=== PATIENT | female | born 1980 | race Native Hawaiian/Other Pacific Islander ===

== ENCOUNTER 2022-06-06 10:41 | Outpatient (REF) | payer MEDICAID, SELFPAY ==
[2022-06-06 12:05] LABS: Hematocrit 41.1 % (37.0-47.0); Hemoglobin 13.6 g/dl (12.0-16.0); Mean Corpuscular HGB Conc 33.1 g/dl (31.0-35.0); Mean Corpuscular Hemoglobin 29.9 pg (27.0-33.0); Mean Corpuscular Volume 90.3 fL (80.0-98.0); Mean Platelet Volume 10.8 fL (9.4-12.3); Platelet Count 365 X10*3/uL (160-400); Red Blood Count 4.55 X10*6/uL (4.20-5.50); Red Cell Distribution Width 12.5 % (11.0-16.0); White Blood Count 6.6 X10*3/uL (4.8-10.8)
[2022-06-06 12:35] LABS: HCG Quantitative < 2 mIU/mL; TSH reflex Free T4 1.03 uIU/mL (0.32-4.0)
[2022-06-06 16:49] LABS: CT PCR NOT DETECTED (Not Detect.); NG PCR NOT DETECTED (Not Detect.)
[2022-06-09 18:06] LABS: HPV mRNA E6/E7 rflx Not Detected (Not Detected)
== END 2022-06-06 10:42 | disposition home or self-care (01) ==
LOC: HO.LAB 10:41
PROVIDERS: Visit Provider Obstetrics & Gynecology
DX: Z01.419 Encounter for gynecological examination (general) (routine) without abnormal findings (principal); R10.2 Pelvic and perineal pain; N93.9 Abnormal uterine and vaginal bleeding, unspecified; Z11.51 Encounter for screening for human papillomavirus (HPV); Z90.79 Acquired absence of other genital organ(s)
CPT/HCPCS: 36415; 84443; 84702; 85027; 87491; 87591; 87624; 88142; 99202

== ENCOUNTER 2022-06-09 14:59 | Outpatient (REF) | payer MEDICAID, SELFPAY ==
--- NOTE | ~2022-06-09 | MM_ITS ---
EXAMINATION: MM SCREENING DIGITAL BREAST TOMOSYNTHESIS, BILATERAL CLINICAL INFORMATION: Screening. Asymptomatic. The lifetime risk of breast cancer based on the Tyrer-Cuzick Model is 8.6%. COMPARISON: Mammography: None. TECHNIQUE: Digital breast tomosynthesis is performed in both the craniocaudal and mediolateral oblique views along with computer-aided detection (CAD). Synthesized 2D images are generated from the tomosynthesis. FINDINGS: There are scattered areas of fibroglandular density (ACR BI-RADS breast composition Category b). No abnormal suspicious mass or grouping of microcalcifications is seen within the left breast. On craniocaudal view central aspect approximately 5.5 cm from nipple there is an irregularly marginated density measuring approximately 1 cm in diameter for which spot compression view is recommended. I do not see a definite correlate on mediolateral oblique projection, however there is a large amount of dense breast parenchyma superiorly in the expected location of the density by tomosynthesis. MM/MM tomosynthesis screening BI IMPRESSION: Right breast density for further evaluation with spot compression view and craniocaudal projection. ASSESSMENT: BI-RADS 0: Incomplete - Need Additional Imaging Evaluation. RECOMMENDATION: 1. Additional views of the right breast. 2. Targeted ultrasound if warranted after review of the additional views. 3. Radiology department staff will contact the patient for additional imaging. This patient's information was entered into a reminder system with a target due date for their next mammogram.
== END 2022-06-09 15:00 | disposition home or self-care (01) ==
LOC: HO.MAMMO 14:59
PROVIDERS: PCP Internal Medicine; Visit Provider Internal Medicine
DX: Z12.31 Encounter for screening mammogram for malignant neoplasm of breast (principal)
CPT/HCPCS: 77063; 77067

== ENCOUNTER 2022-06-20 13:18 | Outpatient (REF) | payer MEDICAID, SELFPAY ==
--- NOTE | ~2022-06-20 | MM_ITS ---
EXAMINATION: MM DIAGNOSTIC DIGITAL BREAST TOMOSYNTHESIS, RIGHT CLINICAL INFORMATION: Recall from baseline mammography for question of irregular asymmetric density limited to CC view central right breast. COMPARISON: Mammography: 06/09/2022, baseline. TECHNIQUE: Digital breast tomosynthesis is performed. 2D images are generated from the tomosynthesis. The following views are obtained: Rolled CC x2, spot CC. FINDINGS: There are scattered areas of fibroglandular density (ACR BI-RADS breast composition Category b). Breast tissue composition borders on predominantly fatty. The additional views show no mass or architectural abnormality or asymmetric density. Results are discussed with the patient at time of visit. MM/MM tomosynthesis added views R IMPRESSION: Additional views show no asymmetric density, architectural abnormality, or mass. ASSESSMENT: BI-RADS 1: Negative RECOMMENDATION: Routine annual mammography screening. This patient's information was entered into a reminder system with a target due date for their next mammogram.
== END 2022-06-20 13:19 | disposition home or self-care (01) ==
LOC: HO.MAMMO 13:18
PROVIDERS: Visit Provider Obstetrics & Gynecology
DX: R92.2 Inconclusive mammogram (principal)
CPT/HCPCS: 77061; 77065

== ENCOUNTER 2022-07-04 14:54 | Outpatient (REF) | payer MEDICAID, SELFPAY ==
[2022-07-04 15:32] LABS: COVID-19 Test Negative (Negative); IDNOW Serial# 16C4AD1C
== END 2022-07-04 14:55 | disposition home or self-care (01) ==
LOC: HO.LAB 14:54
PROVIDERS: Visit Provider Internal Medicine
DX: Z20.822 Contact with and (suspected) exposure to COVID-19 (principal)
CPT/HCPCS: 87635; C9803

== ENCOUNTER 2022-09-02 16:12 | Outpatient (REF) | payer MEDICAID, SELFPAY ==
--- NOTE | ~2022-09-02 | US_ITS ---
EXAMINATION:US pelvic and transvaginal CLINICAL INFORMATION: Reason for Exam N93.9 - Abnormal uterine and vaginal bleeding, unspecified COMPARISON: No priors available. LMP: 06/06/2019 FINDINGS: UTERUS: Uterus is retroverted. Size: 11.3 x 4 x 5.9 cm. Uterine mass: There is no uterine mass. Cervix: There are nabothian cysts. Endometrium: No ultrasound evidence of endometrial lesion. endometrial thickness measures 1.2 cm there is fluid within the endometrial canal , given patient's age, could be be physiologic. ADNEXA: Normal Right ovary: Normal in size. Left ovary: Normal in size. Doppler exam: Normal Doppler flow identified in both ovaries. FREE FLUID: Trace amount of free fluid. OTHER FINDINGS: None US/US pelvic and transvaginal IMPRESSION: 1. There is fluid within the endometrial canal, given patient's age this could be physiologic, consider correlation with follow-up ultrasound in 6 weeks. 2. There are nabothian cysts, Exam otherwise normal.
== END 2022-09-02 16:13 | disposition home or self-care (01) ==
LOC: HO.US 16:12
PROVIDERS: Visit Provider Obstetrics & Gynecology
DX: N93.9 Abnormal uterine and vaginal bleeding, unspecified (principal)
CPT/HCPCS: 76830; 76856

== ENCOUNTER 2022-09-14 14:48 | Outpatient (REF) | payer MEDICAID, SELFPAY | END 2022-09-14 14:49 | disposition home or self-care (01) | LOC: HO.LNP 14:48 | PROVIDERS: PCP Internal Medicine; Visit Provider Obstetrics & Gynecology | DX: N93.9 Abnormal uterine and vaginal bleeding, unspecified (principal); R10.2 Pelvic and perineal pain | CPT/HCPCS: 58100; 88305 ==

== ENCOUNTER → 2022-10-04 14:56 | Outpatient (BNVA) | payer MEDICAID, SELFPAY | PROVIDERS: PCP Internal Medicine; Visit Provider Obstetrics & Gynecology | DX: N93.9 Abnormal uterine and vaginal bleeding, unspecified (principal) | CPT/HCPCS: 99212 ==

== ENCOUNTER 2022-10-26 11:29 | Outpatient (REF) | payer MEDICAID, SELFPAY ==
[2022-10-26 11:50] LABS: MANUAL DIFF FLAG NO
[2022-10-26 13:28] LABS: Basophils Percent Auto 0.4 % (0-2); Eosinophils Absolute Auto 0.1 X10*3/uL (0.0-0.4); Eosinophils Percent Auto 2.5 % (0-4); Hematocrit 40.1 % (37.0-47.0); Hemoglobin 13.2 g/dl (12.0-16.0); Imm Gran Abs Auto 0.02 X10*3/uL (0.00-0.03); Imm Gran Pct Auto 0.4 % (0.0-0.4); Lymphocytes Absolute Auto 2.5 X10*3/uL (1.2-4.9); Lymphocytes Percent Auto 44.6 % (20-40); Mean Corpuscular HGB Conc 32.9 g/dl (31.0-35.0); Mean Corpuscular Hemoglobin 30.3 pg (27.0-33.0); Mean Platelet Volume 11.8 fL (9.4-12.3); Monocytes Absolute Auto 0.4 X10*3/uL (0.1-1.2); Monocytes Percent Auto 6.5 % (2-11); Neutrophils Absolute Auto 2.5 x10*3/uL (2.0-8.3); Neutrophils Percent Auto 45.6 % (45-73); Platelet Count 268 X10*3/uL (160-400); Red Blood Count 4.36 X10*6/uL (4.20-5.50); Red Cell Distribution Width 12.7 % (11.0-16.0); White Blood Count 5.6 X10*3/uL (4.8-10.8)
[2022-10-26 13:58] LABS: Anion Gap 13 (12-20); Blood Urea Nitrogen 11 mg/dL (9-16); Calcium 8.8 mg/dL (8.4-10.2); Carbon Dioxide 22 mmol/L (22-29); Chloride 108 mmol/L (96-108); Estimated Glomerular Filt Rate > 60; Glucose Random 79 mg/dL (60-115); Potassium 4.8 mmol/L (3.3-5.1); Sodium 138 mmol/L (135-145)
[2022-10-26 14:22] LABS: Erythrocyte Sedimentation Rate 12 MM/HR (0-20)
== END 2022-10-26 11:30 | disposition home or self-care (01) ==
LOC: HO.LAB 11:29
PROVIDERS: PCP Internal Medicine; Visit Provider Psychiatry & Neurology Neurology
DX: G43.909 Migraine, unspecified, not intractable, without status migrainosus (principal)
CPT/HCPCS: 36415; 80048; 85025; 85652

== ENCOUNTER 2022-11-29 09:42 | Day surgery (SDC) | payer MEDICAID, SELFPAY ==
--- NOTE | 2022-11-28 12:50 | HO.ANESPROP2 ---
Documented by User: Valerie Wang NP 11/28/22 12:53 HPI - Anesthesia Eval Consult details Narrative: 42yo F for Upper Endoscopy PMFSH Active Problems Active Problems: All Active Problems (Updated 11/28/22 @ 12:21 by Starr Lutz RN) Abnormal uterine bleeding (AUB) (Acute) Pelvic pain (Acute) Past Medical History Medical History (Updated 11/29/22 @ 10:04 by Alanna Martinez) Carpal tunnel syndrome Hx of ectopic Hypertension Migraine headache Pelvic adhesions Surgical History Surgical History (Updated 11/29/22 @ 09:59 by Alanna Martinez) Hx of bilateral salpingectomy Hx of section Hx of cholecystectomy Social History Social History Patient Tobacco Use Status: Never used Tobacco Use of substances other than those prescribed or required for medical reasons: No Are you DNR?: No Advance Directives: No Advance Directives Information Provided: Yes Meds Allergies Allergy/AdvReac Type Severity Reaction Status Date / Time No Known Allergies Allergy Verified 11/29/22 10:03 Home Medications Medication Instructions Recorded Confirmed Last Taken Type fpdlvmcmgn-ybjgebohttouj-vekashgp 1 - 2 cap PO Q4H PRN Migraine 06/06/22 11/29/22 Unknown History 50 mg-325 mg-40 mg capsule Headache famotidine 20 mg tablet 20 mg PO BID 06/06/22 11/29/22 Unknown History hydrocodone 5 mg-acetaminophen 325 1 - 2 tab PO Q6H PRN pain 06/06/22 11/29/22 Unknown History mg tablet ibuprofen 600 mg tablet 600 mg PO Q8H PRN Pain 06/06/22 11/29/22 11/25/22 History loperamide 2 mg capsule 4 mg PO DAILY 06/06/22 11/29/22 Unknown History omeprazole 40 mg capsule,delayed 40 mg PO DAILY 06/06/22 11/29/22 Unknown History release ondansetron HCl 4 mg tablet 4 mg PO Q8H PRN nausea/vomiting 06/06/22 11/29/22 Unknown History amitriptyline 25 mg tablet 1 tab PO BEDTIME 11/28/22 11/29/22 Unknown History cholecalciferol (vitamin D3) 25 1 cap PO DAILY 11/28/22 11/29/22 Unknown History mcg (1,000 unit) capsule (Vitamin D3) meclizine 25 mg tablet 1 tab PO Q8H PRN Migraine Headache 11/28/22 11/29/22 Unknown History topiramate 50 mg tablet 1 tab PO BEDTIME 11/28/22 11/29/22 Unknown History amlodipine 2.5 mg tablet 1 tab PO DAILY 11/29/22 11/29/22 11/27/22 History Exam Exam Date and Time: November 28, 2022 1250 Pertinent Lab Results Pertinent Lab Results: Laboratory Tests 10/26/22 10/26/22 11:48 11:48 WBC 5.6 Hgb 13.2 Hct 40.1 Plt Count 268 D Sodium 138 Potassium 4.8 Chloride 108 Carbon Dioxide 22 BUN 11 Creatinine 0.69 Assessment and Plan Assessment Anesthesia Assessment: Chart Reviewed Documented by User: Daquan Roldan MD 11/29/22 12:31 PMFSH Past Medical History Medical History (Updated 11/29/22 @ 10:04 by Alanna Martinez) Carpal tunnel syndrome Hx of ectopic Hypertension Migraine headache Pelvic adhesions Family History Family history of problems with anesthesia: No Surgical History Surgical History (Updated 11/29/22 @ 09:59 by Alanna Martinez) Hx of bilateral salpingectomy Hx of section Hx of cholecystectomy History of Problems with Anesthesia: No Social History Social History Patient Tobacco Use Status: Never used Tobacco Use of substances other than those prescribed or required for medical reasons: No Are you DNR?: No Advance Directives: No Advance Directives Information Provided: Yes Meds Allergies Allergy/AdvReac Type Severity Reaction Status Date / Time No Known Allergies Allergy Verified 11/29/22 10:03 Home Medications Medication Instructions Recorded Confirmed Last Taken Type kqkjglkodf-yhzlaurgujgyd-iulsdlzf 1 - 2 cap PO Q4H PRN Migraine 06/06/22 11/29/22 Unknown History 50 mg-325 mg-40 mg capsule Headache famotidine 20 mg tablet 20 mg PO BID 06/06/22 11/29/22 Unknown History hydrocodone 5 mg-acetaminophen 325 1 - 2 tab PO Q6H PRN pain 06/06/22 11/29/22 Unknown History mg tablet ibuprofen 600 mg tablet 600 mg PO Q8H PRN Pain 06/06/22 11/29/22 11/25/22 History loperamide 2 mg capsule 4 mg PO DAILY 06/06/22 11/29/22 Unknown History omeprazole 40 mg capsule,delayed 40 mg PO DAILY 06/06/22 11/29/22 Unknown History release ondansetron HCl 4 mg tablet 4 mg PO Q8H PRN nausea/vomiting 06/06/22 11/29/22 Unknown History amitriptyline 25 mg tablet 1 tab PO BEDTIME 11/28/22 11/29/22 Unknown History cholecalciferol (vitamin D3) 25 1 cap PO DAILY 11/28/22 11/29/22 Unknown History mcg (1,000 unit) capsule (Vitamin D3) meclizine 25 mg tablet 1 tab PO Q8H PRN Migraine Headache 11/28/22 11/29/22 Unknown History topiramate 50 mg tablet 1 tab PO BEDTIME 11/28/22 11/29/22 Unknown History amlodipine 2.5 mg tablet 1 tab PO DAILY 11/29/22 11/29/22 11/27/22 History Exam Airway Mallampati Class: II TM Dist: >3cm Neck ROM: Full Loose/Missing/Broken Teeth: No Assessment and Plan Assessment Anesthesia Assessment: Anesthesia Plan Discussed Final Anesthetic Review Family History of Problems with Anesthesia: No History of Problems with Anesthesia: No NPO: Yes ASA Class: II Final Preanesthetic Review: No Changes in Pt Med Stat, Meds/Allgs Chart Reviewed, Consent Obtained/Reviewed and Anes Risks/Benef Reviewed Patient Risk: Low Procedure Risk: Low Anesthetic Plan Anesthetic Plan: MAC: Disposition: Standard PACU
[2022-11-29 10:04] VITALS: BMI 32.8
[2022-11-29 10:11] VITALS: BP 149/99; PULSE 71; RESP 16; TEMP 36.8; O2SAT 98
[2022-11-29] MEDS: Lactated Ringers 1,000 ML 100 ML IVCONT (10:26)
--- NOTE | 2022-11-29 11:38 | MHC.SHP ---
Pre-Procedural Eval Section A Date of Service: 11/29/22 Section B Chief Complaint: reflux disease Details of Present Illness: see H*P no changes Relevant Family History (Specify if Yes): No Relevant Social History: None Present Medications: see Short Stay Collaborative assessment Medical History: No relevant PMH History of Previous Operations: No relevant previous surgery Allergies: Allergies Allergy/AdvReac Type Severity Reaction Status Date / Time No Known Allergies Allergy Verified 11/29/22 10:03 Review of Systems Sugical H&P ROS: Negative: Constitution, Cardiovascular, Respiratory, Neurological, Psychiatric, Hem-Onc, Allergic/Immunologic, Gastrointestinal, Genitourinary, Musculoskeletal, Integumentary, Endocrine and Eyes/Ears/Nose/Throat Exam Surgical H&P Exam: Normal: HEENT, Normal: Heart, Normal: Lungs, Normal: Extremities, Normal: Abdomen, Normal: Skin and Normal: Neurological Plan Diagnosis/Plan: Unchanged I have reviewed the history and physical and performed a pertinent physical examination on my patient. No changes have occurred unless specified. Time Spent With Patient Time: Total time managing care of this patient today ____ minutes.
--- NOTE | 2022-11-29 11:53 | P.BOP_ITS ---
Brief Operative Note Date of Service: 11/29/22 Pre-op diagnosis: gerd Post-op diagnosis: same Surgeon: Jayy lFetcher Anesthesia: MAC Was an Openstack Developer used for this Procedure?: No Estimated blood loss (mL): 2 Pathology: other Condition: stable Disposition: PACU
--- NOTE | 2022-11-29 11:53 | PM.OP ---
Brief Operative Note Date of Service: 11/29/22 Pre-op diagnosis: gerd Post-op diagnosis: same Surgeon: Jayy Fletcher Anesthesia: MAC Was an Registered Nurse Hh Case Manager used for this Procedure?: No Estimated blood loss (mL): 2 Pathology: other Condition: stable Disposition: PACU
[2022-11-29 12:00] VITALS: BP 135/82; PULSE 69; RESP 16; TEMP 36.6; O2SAT 98
[2022-11-29 12:15] VITALS: BP 139/83; PULSE 67; RESP 16; TEMP 36.6; O2SAT 98
--- NOTE | 2022-11-29 23:05 | OP_ITS ---
SURGEON: Jayy Fletcher MD INDICATIONS: Gastroesophageal reflux disease. PREOPERATIVE DIAGNOSIS: POSTOPERATIVE DIAGNOSIS: PROCEDURE PERFORMED: Upper endoscopy with biopsy. ESTIMATED BLOOD LOSS: COMPLICATIONS: ANESTHESIA: Monitored anesthesia care. ASSISTANTS: SPECIMENS: DESCRIPTION OF PROCEDURE: Date: 11/29/22. A History and Physical was performed. The risks and benefits of the procedure were explained to the patient. Informed consent was obtained. The patient was placed in the left lateral decubitus position. The Olympus video gastroscope was introduced into the esophagus, stomach and duodenum. Examination was performed and the scope was removed. She tolerated the procedure well and was transferred to recovery area in stable condition. FINDINGS: Esophagus: The esophagus was normal. There was no esophagitis. There was an irregular EG junction. This was biopsied. Stomach: The stomach showed no evidence of masses, ulcers or polyps. Antral biopsies were obtained to evaluate for H. pylori. Duodenum: The bulb and second portion were normal. Second portion biopsies were obtained to evaluate for any evidence of malabsorption. IMPRESSION: Gastroesophageal reflux disease. RECOMMENDATION: Followup the biopsy results. MD CORI Wilks/JALEN / [id number] MTDD
== END 2022-11-29 14:01 | disposition home or self-care (01) ==
PROVIDERS: PCP Internal Medicine; Visit Provider Internal Medicine Gastroenterology
PROC: 0DJ08ZZ Inspection of Upper Intestinal Tract, Via Natural or Artificial Opening Endoscopic (ICD-10-PCS; CPT 43235; principal; 2022-11-29 11:10)
DX: K21.9 Gastro-esophageal reflux disease without esophagitis (principal); K29.50 Unspecified chronic gastritis without bleeding; G43.909 Migraine, unspecified, not intractable, without status migrainosus; Z79.1 Long term (current) use of non-steroidal anti-inflammatories (NSAID); Z79.899 Other long term (current) drug therapy; Z90.49 Acquired absence of other specified parts of digestive tract
CPT/HCPCS: 43239; 88305; 88342

== ENCOUNTER 2023-02-15 16:20 | Outpatient (REF) | payer MEDICAID, SELFPAY ==
--- NOTE | ~2023-02-15 | CT_ITS ---
EXAMINATION: CT HEAD WITHOUT CONTRAST CLINICAL INFORMATION: Vertigo, dizziness. COMPARISON: CT brain 01/11/2017. TECHNIQUE: Contiguous axial imaging was performed from the skull base to vertex without intravenous administration of contrast. This CT examination was performed using dose optimization techniques as appropriate, variously including the following: *Automated exposure control *Adjustment of mA and/or kV according to patient size (this includes techniques or standardized protocols for targeted exams where dose is matched to indication/reason for exam; i.e. extremities or head) *Use of iterative reconstruction technique DLP: 724 mGy-cm FINDINGS: There is no acute intra-axial, extra-axial bleed, masses or midline shift. There is no acute infarction evolution. There is no edema. The carrington to white matter differentiation is maintained normal. The lateral ventricles are symmetrical in size and configuration. Bilateral paranasal sinuses are well-aerated. The mastoid sinuses are aerated. There is no scalp soft tissue abnormality. No calvarial abnormality seen. CT/CT head/brain wo IV con IMPRESSION: No acute intracranial process seen. No major change compared to previous exam 01/11/2017.
== END 2023-02-15 16:21 | disposition home or self-care (01) ==
LOC: HO.CT 16:20
PROVIDERS: PCP Internal Medicine; Visit Provider Psychiatry & Neurology Neurology
DX: R42 Dizziness and giddiness (principal)
CPT/HCPCS: 70450

== ENCOUNTER → 2023-07-31 16:00 | Outpatient (BNV) | payer MEDICAID, SELFPAY | PROVIDERS: PCP Internal Medicine; Visit Provider Radiology Diagnostic Radiology | DX: Z12.31 Encounter for screening mammogram for malignant neoplasm of breast (principal) | CPT/HCPCS: 77063; 77067 ==

== ENCOUNTER 2023-07-31 16:15 | Outpatient (REF) | payer MEDICAID, SELFPAY | END 2023-07-31 16:16 | disposition home or self-care (01) | LOC: HO.MAMMO 16:15 | PROVIDERS: PCP Internal Medicine; Visit Provider Internal Medicine | DX: Z12.31 Encounter for screening mammogram for malignant neoplasm of breast (principal) | CPT/HCPCS: 77063; 77067 ==

== ENCOUNTER 2023-08-31 11:53 | Outpatient (REF) | payer MEDICAID, SELFPAY ==
--- NOTE | ~2023-08-31 | XR_ITS ---
EXAMINATION: XR SHOULDER, LEFT CLINICAL INFORMATION: Acute left shoulder pain COMPARISON: None available. TECHNIQUE: 5 views of the left shoulder. FINDINGS: Acromioclavicular and glenohumeral joints preserved. No abnormal soft tissue calcifications identified adjacent to the humeral head. Mild hypertrophic change along the inferior aspect of the glenoid. XR/XR shoulder LT min 2V IMPRESSION: Mild hypertrophic change along the inferior aspect of the glenoid.
== END 2023-08-31 11:54 | disposition home or self-care (01) ==
LOC: HO.HHCX 11:53
PROVIDERS: Visit Provider Internal Medicine
DX: M25.512 Pain in left shoulder (principal)
CPT/HCPCS: 73030

== ENCOUNTER 2023-11-24 09:30 | Outpatient (REF) | payer MEDICAID, SELFPAY ==
[2023-11-24 11:24] LABS: MANUAL DIFF FLAG NO
[2023-11-24 12:01] LABS: Basophils Percent Auto 0.5 % (0-2); Eosinophils Absolute Auto 0.1 X10*3/uL (0.0-0.4); Hematocrit 40.3 % (37.0-47.0); Hemoglobin 13.4 g/dl (12.0-16.0); Imm Gran Abs Auto 0.01 X10*3/uL (0.00-0.03); Imm Gran Pct Auto 0.2 % (0.0-0.4); Lymphocytes Absolute Auto 2.3 X10*3/uL (1.2-4.9); Lymphocytes Percent Auto 37.7 % (20-40); Mean Corpuscular HGB Conc 33.3 g/dl (31.0-35.0); Mean Corpuscular Hemoglobin 30.9 pg (27.0-33.0); Mean Corpuscular Volume 92.9 fL (80.0-98.0); Mean Platelet Volume 10.8 fL (9.4-12.3); Monocytes Absolute Auto 0.3 X10*3/uL (0.1-1.2); Monocytes Percent Auto 5.6 % (2-11); Neutrophils Absolute Auto 3.4 x10*3/uL (2.0-8.3); Platelet Count 388 X10*3/uL (160-400); Red Blood Count 4.34 X10*6/uL (4.20-5.50); Red Cell Distribution Width 12.2 % (11.0-16.0); White Blood Count 6.1 X10*3/uL (4.8-10.8)
[2023-11-24 12:58] LABS: Alanine Aminotransferase 24 U/L (0-31); Albumin Level 4.2 g/dL (3.5-5.0); Alkaline Phosphatase 73 U/L (39-117); Anion Gap 12 (12-20); Aspartate Amino Transferase 18 U/L (5-31); Bilirubin Direct 0.2 mg/dL (0.0-0.5); Bilirubin Total 0.5 mg/dL (0.0-1.0); Blood Urea Nitrogen 12 mg/dL (9-16); Calcium 9.2 mg/dL (8.4-10.2); Carbon Dioxide 27 mmol/L (22-29); Chloride 105 mmol/L (96-108); Cholesterol 172 mg/dL (<200); Estimated Glomerular Filt Rate > 60; Glucose Random 93 mg/dL (60-115); HDL Cholesterol 48 mg/dL (>40); LDL Cholesterol Calculated 108 mg/dL (<100); Magnesium 2.2 mg/dL (1.6-2.6); Potassium 4.2 mmol/L (3.3-5.1); Sodium 140 mmol/L (135-145); Total Protein 8.3 g/dL (6.5-8.0); Triglycerides 81 mg/dL (<150)
[2023-11-24 13:22] LABS: TSH reflex Free T4 0.82 uIU/mL (0.32-4.0); Vitamin D 25-OH Total 29.9 ng/mL (>30)
== END 2023-11-24 09:31 | disposition home or self-care (01) ==
LOC: HO.HHCL 09:30
PROVIDERS: Visit Provider Internal Medicine
DX: I10 Essential (primary) hypertension (principal); R00.2 Palpitations; E55.9 Vitamin D deficiency, unspecified
CPT/HCPCS: 36415; 80048; 80061; 80076; 82306; 83735; 84443; 85025

== ENCOUNTER 2023-12-07 09:02 | Outpatient (REF) | payer MEDICAID, SELFPAY | END 2023-12-07 09:03 | disposition home or self-care (01) | LOC: HO.NEURO 09:02 | PROVIDERS: PCP Internal Medicine; Visit Provider Internal Medicine | DX: Z13.89 Encounter for screening for other disorder (principal) ==

== ENCOUNTER 2023-12-21 09:36 | Outpatient (REF) | payer MEDICAID, SELFPAY ==
--- NOTE | 2023-12-21 09:39 | EMG_ITS ---
Left median and ulnar motor and sensory studies were performed. Left radial sensory and median and lateral antecubital brachial sensory studies were performed, and needle examination was performed. IMPRESSION: Mild left median neuropathy across carpal tunnel. Otherwise, no significant abnormality was noted. MD ANURAG Augustine/JALEN / [id number]
== END 2023-12-21 09:37 | disposition home or self-care (01) ==
LOC: HO.NEURO 09:36
PROVIDERS: PCP Internal Medicine; Visit Provider Internal Medicine
DX: M25.512 Pain in left shoulder (principal)
CPT/HCPCS: 95886; 95910

== ENCOUNTER 2024-01-25 12:37 | Outpatient (AMB) | payer MEDICAID, SELFPAY ==
[2024-01-25 12:51] VITALS: BP 132/68; PULSE 60; BMI 34.6
--- NOTE | 2024-01-25 12:51 | A.OFFVIS_ITS ---
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 PT still feels paplutations sometimes with SOB Allergies No Known Allergies Allergy (Verified 01/25/24 13:15) Medication List - Last Reconciled 01/25/24 by Aundrea Gibbs NP amitriptyline 1 tab PO BEDTIME amlodipine 5 mg PO DAILY ztbmhqfiqz-emmiddkycsxck-yqrb 50-325-40 mg 1 - 2 caps PO Q4H PRN carvedilol 6.25 mg PO cholecalciferol (vitamin D3) (Vitamin D3) 1 cap PO DAILY famotidine 20 mg PO BID hydrocodone-acetaminophen 5-325 mg 1 - 2 tabs PO Q6H PRN ibuprofen 600 mg PO Q8H PRN loperamide 4 mg PO DAILY meclizine 1 tab PO Q8H PRN medroxyprogesterone (Provera) 10 mg PO DAILY 10 days omeprazole 40 mg PO DAILY ondansetron HCl 4 mg PO Q8H PRN sertraline 25 mg PO DAILY topiramate 1 tab PO BEDTIME HPI HPI Comments History of Present Illness Details 43-year-old female presents today for a new patient visit. She is here today to discuss her hypertension, palpitations, and shortness of breath. She reports recently her blood pressures have improved since being on Coreg and been 120s/80s. She states almost every night she has been getting a racing heart rate that wakes her up. She states these feel like a double beat. She does get dizzy during these episodes and they last about one hour. She denies chest pains. She has a family history stroke and high blood pressure. She does not know the cause of the strokes in her family members. She drinks tea rarely, never coffee. Never smoked, used illicit drugs, or drinks alcohol. She exercises on her bike without difficulties. She is a mother to two younger children. [facility] Medical History Palpitation Hypertension Carpal tunnel syndrome Pelvic adhesions Hx of ectopic Migraine headache Surgical History Hx of cholecystectomy Hx of bilateral salpingectomy Hx of section Family History Mother High blood pressure Stroke Brother High blood pressure Maternal Grandfather Stroke Social History Alcohol intake: never Patient Tobacco Use Status: Never used Tobacco Female Reproductive History Menstrual Age of Menarche: 13 Review of Systems Const Denies weakness ENT Denies dizziness Card Denies chest pain, Denies chest pain with activity, Denies syncope, Denies rapid heart rate, Denies pedal edema, Denies edema, Denies leg edema, Denies lightheadedness, Denies palpitations, Denies dyspnea, Denies dyspnea on exertion and Denies orthopnea Resp Denies cough, Denies dyspnea and Denies dyspnea on exertion GI Denies hematochezia and Denies change in stool character Musc Denies abnormal gait, Denies muscle cramps, Denies muscle weakness, Denies numbness, Denies radiating pain into limb and Denies tingling Neuro Denies abnormal gait, Denies dizziness, Denies syncope, Denies numbness, Denies tingling and Denies weakness Endo Denies palpitations Physical Exam Vital Signs: BMI result Body Mass Index 34.6 Const General: healthy appearing and no acute distress Orientation/consciousness: patient oriented x3 HEENT Head: Yes normal to inspection Eyes General: appearance normal, both eyes and all related structures Neck Neck: Yes normal visual inspection Chest Chest palpation & inspection: normal inspection of the chest Resp Effort & Inspection: normal respiratory effort Auscultation: clear to auscultation bilaterally Cardio Jugular venous distension: no JVD Palpation: normal PMI Rate: regular rate Rhythm: regular rhythm Heart sounds: S1 normal heart sound present, S2 normal heart sound present, no click, no gallops, no murmurs and no rubs GI Inspection: Yes normal to inspection Palpation (GI): Soft to palpation Skin General skin exam: no rashes or lesions noted Neuro General: patient oriented x3 Extrem General: Yes normal to inspection Psych Appearance: grossly normal Office Procedures EKG Details: EKG today. Sinus Bradycardia. Rate 59 bpm. QRS 84ms. QTc 376ms. NC 154ms. [id number], Complete Assessment & Plan Assessment & Plan (1) Palpitation: Code(s): R00.2 - Palpitations (2) Hypertension: Code(s): I10 - Essential (primary) hypertension Plan Patient with palpitations mostly at night. Reports occationally can happen with exertion. Will obtain heart monitor to assess for arrhythmias. Will get echocardiogram to assess for structural changes due to HTN. Patient reports not sleeping well and needing more sleep to feel rested. She does not know if she snores. Will check sleep study to assess for sleep apnea to assist with palpitations. Orders: Orders CA echo transthoracic complete Today I10 - Essential (primary) hypertension, R00.2 - Palpitations ECG holter monitor 48 hour Today R00.2 - Palpitations RT home sleep study Today G47.10 - Hypersomnia, unspecified Coding Level of Care Code New Pt Level 3 (09308) Diagnoses Palpitation R00.2 Hypertension I10 CPT Codes EKG - CPT: 54555-[id number], Complete ([id number])
[2024-01-25 13:31] VITALS: BP 118/72
== END 2024-01-25 13:36 | disposition home or self-care (01) ==
PROVIDERS: PCP Internal Medicine; Visit Provider Nurse Practitioner
DX: R00.2 Palpitations (principal); I10 Essential (primary) hypertension
CPT/HCPCS: 93010; 99203

== ENCOUNTER → 2024-01-25 12:37 | Outpatient (BNVA) | payer MEDICAID, SELFPAY | PROVIDERS: PCP Internal Medicine; Visit Provider Nurse Practitioner | DX: I10 Essential (primary) hypertension (principal); R00.2 Palpitations; R06.02 Shortness of breath; G47.10 Hypersomnia, unspecified | CPT/HCPCS: 93005; 99212 ==

== ENCOUNTER → 2024-02-15 09:48 | Outpatient (REF) | payer MEDICAID, SELFPAY ==
--- NOTE | 2024-02-15 09:52 | CA_ITS ---
Transthoracic Echocardiogram Patient (Last, First, Middle): Jing Ryan, Gender: Female Date of : 1980 Age: 43 Procedure Date: 02/15/2024 Procedure Type: Transthoracic Echocardiogram Location: OP Height: 144.78 cm Weight: 65.77 kg BSA: 1.57 m2 Heart Rate: 55 bpm BP: 130 / 80 mmHg Food And Beverage Order Clerk: NILTON Referring MD: Aundrea Gibbs CIPHER EXPERT Symptoms: R00.2 - Palpitations Study Quality: Adequate ECG Rhythm: Bradycardia Conclusions: - Normal left ventricular size, thickness, systolic function, and wall motion. The visually estimated ejection fraction is between 55-60%. Diastolic function is normal for age. - Normal right ventricular cavity size and systolic function. - Normal GLS -20%. Findings Left Ventricle Normal left ventricular size, thickness, systolic function, and wall motion. The visually estimated ejection fraction is between 55-60%. Diastolic function is normal for age. Right Ventricle Normal right ventricular cavity size and systolic function. Atria The left atrium is normal in size. Aortic Valve Normal aortic valve structure and function. There is no aortic valve stenosis. There is no aortic valve regurgitation. Mitral Valve The mitral valve appears normal. There is no mitral valve regurgitation. There is no mitral valve stenosis. Pulmonic Valve The pulmonic valve is likely normal. Tricuspid Valve Normal tricuspid valve structure and function. There is no tricuspid valve regurgitation. Tricuspid regurgitation envelope is inadequate for calculation of right ventricular systolic pressure. Normal right atrial pressure. Great Vessels All visible segments of the aorta are normal in size. The visualized portions of the pulmonary artery and branches are normal. Venous The inferior vena cava is normal in size and collapses greater than 50% with inspiration. Pericardium/Pleural There is no evidence of pericardial effusion. Prior Study Comparison No prior study available for comparison. Measurements 2D Linear Measurements IVSd: 0.83 0.6-0.9/0.6-1.0 cm LVIDd: 4.10 3.9-5.3/4.2-5.9 cm LVIDd Index: 2.61 2.4-3.2/2.2-3.1 cm/m2 LVIDs: 2.34 2.0-3.6 cm LVPWd: 0.97 0.7-1.1 cm LA Diam: 3.00 2.7-3.8/3.0-4.0 cm LAIDs Index: 1.91 1.5-2.3 cm/m2 LV Mass: 142.57 67-162/88-224 g LV Mass Index: 90.81 43-95/49-115 g/m2 LVOT Diam: 2.00 3.0+(-)1.3 cm 2D Systolic Function EF 4C: 63.70 >55% EF 2C: 57.90 >55% EF BiP: 60.80 >55% Mitral Valve MV Pk E: 0.83 MV PK A: 0.72 MV Decel Time: 240.00 E/A: 1.10 E'Lateral: 17.40 E'Medial: 10.20 E/E' Med: 8.10 E/E' Lat: 4.80 PHT: 70.00 MVA PHT: 3.14 Decel [place]: 3.46 Aortic Valve AoV Pk Issa: 1.50 AoV Mn Issa: 1.06 AoV VTI: 0.33 AoV Pk Grad: 9.00 Aov Mn Grad: 5.00 FATOUMATA Cont.VTI: 2.40 LVOT LVOT Pk Issa: 1.18 LVOT Mn Issa: 0.82 LVOT VTI: 0.26 LVOT Pk Grad: 6.00 LVOT Mn Grad: 3.00 LVOT Diam: 2.00 LVOT Area: 3.14 Diastolic Function MV Pk E: 0.83 MV Pk A: 0.72 E/A: 1.10 E'Medial: 10.20 E/E' Med: 8.10 E' Laterial: 17.40 E/E' Lat: 4.80 Right Ventricle TAPSE (mm): 24.40 TVS' Issa: 12.50 Tricuspid Valve RA Press: 8.00 Great Vessels Aorta Sinus of Valsalva: 3.20 2.0-3.5 cm Ao Asc: 3.00 2.1-3.4 cm Pulmonary Valve PV Pk Issa: 1.02 Peak PV Grad: 4.00 Updated in Other Vendor System with Status of Final Kareem Funes MD electronically signed on 02/15/2024 7:02:15 PM with status of Final
--- NOTE | 2024-02-15 09:52 | HM_ITS ---
Conclusion: 1. Patient was monitored for total period of 2 days 2. Baseline was normal sinus with average heart of 65 beats per minute 3. Frequent sinus bradycardia noted with 45.5% of time heart rate below 60 beats per minute without significant pauses 4. No significant arrhythmias noted 5. Patient reported 1 event with symptoms of palpitation correlating with sinus rhythm MTDD
== END ==
LOC: HO.CARD 09:48
PROVIDERS: PCP Internal Medicine; Visit Provider Nurse Practitioner
DX: R00.2 Palpitations (principal); I10 Essential (primary) hypertension
CPT/HCPCS: 93225; 93306

== ENCOUNTER → 2024-02-15 09:52 | Outpatient (BNV) | payer MEDICAID, SELFPAY | PROVIDERS: PCP Internal Medicine; Visit Provider Internal Medicine Cardiovascular Disease | DX: R00.2 Palpitations (principal) | CPT/HCPCS: 93227; 93306; 93356 ==

== ENCOUNTER → 2024-02-29 09:54 | Outpatient (REF) | payer MEDICAID, SELFPAY | LOC: HO.SL 09:54 | PROVIDERS: PCP Internal Medicine; Visit Provider Nurse Practitioner | DX: G47.10 Hypersomnia, unspecified (principal); R06.83 Snoring | CPT/HCPCS: 95806 ==

== ENCOUNTER → 2024-02-29 10:15 | Outpatient (BNV) | payer MEDICAID, SELFPAY | PROVIDERS: PCP Internal Medicine; Visit Provider Internal Medicine | DX: R06.83 Snoring (principal); G47.10 Hypersomnia, unspecified | CPT/HCPCS: 95806 ==

== ENCOUNTER 2024-03-20 12:40 | Outpatient (AMB) | payer MEDICAID, SELFPAY ==
[2024-03-20 12:51] VITALS: BP 120/70; PULSE 86; O2SAT 99; BMI 33.4
--- NOTE | 2024-03-20 12:51 | A.OFFVIS_ITS ---
Vital Signs 03/20/24 12:51 Height 4 ft 9 in Weight 154 lb 5.177 oz BMI 33.4 BP 120/70 Blood Pressure Location Lt brachial Position Sitting Pulse 86 Pulse Source Pulse Oximeter Pulse Oximetry (%) 99 Oxygen Delivery Method Room Air Intake Visit Reasons: 8 week f/up after testing Allergies No Known Allergies Allergy (Verified 03/20/24 12:59) Medication List - Last Reconciled 03/20/24 by Aundrea Gibbs NP amitriptyline 1 tab PO BEDTIME amlodipine 10 mg PO DAILY tdezmjznyc-bowbrsbrogkrx-diwv 50-325-40 mg 1 - 2 caps PO Q4H PRN carvedilol 6.25 mg PO cholecalciferol (vitamin D3) (Vitamin D3) 1 cap PO DAILY famotidine 20 mg PO BID hydrocodone-acetaminophen 5-325 mg 1 - 2 tabs PO Q6H PRN ibuprofen 600 mg PO Q8H PRN loperamide 4 mg PO DAILY meclizine 1 tab PO Q8H PRN medroxyprogesterone (Provera) 10 mg PO DAILY 10 days omeprazole 40 mg PO DAILY ondansetron HCl 4 mg PO Q8H PRN sertraline 25 mg PO DAILY topiramate 1 tab PO BEDTIME HPI Comments Details: 43-year-old female presents today for a follow-up visit. She was seen regarding her hypertension, palpitations, and shortness of breath. She reports recently her blood pressures have improved since being on Coreg and been 120s/80s. She states she still feels palpitations but not as much. She denies chest pains, shortness of breath, syncope, or dizziness. She has a family history stroke and high blood pressure. She does not know the cause of the strokes in her family members. She drinks tea rarely, never coffee. Never smoked, used illicit drugs, or drinks alcohol. She exercises on her bike without difficulties. She is a mother to two younger children. [facility] Medical History Palpitation Hypertension Carpal tunnel syndrome Pelvic adhesions Hx of ectopic Migraine headache Surgical History Hx of cholecystectomy Hx of bilateral salpingectomy Hx of section Family History Mother High blood pressure Stroke Brother High blood pressure Maternal Grandfather Stroke Social History Alcohol intake: never Patient Tobacco Use Status: Never used Tobacco Female Reproductive History Menstrual Age of Menarche: 13 Review of Systems Const Denies weakness ENT Denies dizziness Card Denies chest pain, Denies chest pain with activity, Denies syncope, Denies rapid heart rate, Denies pedal edema, Denies edema, Denies leg edema, Denies lightheadedness, Denies palpitations, Denies dyspnea, Denies dyspnea on exertion and Denies orthopnea Resp Denies cough, Denies dyspnea and Denies dyspnea on exertion GI Denies hematochezia and Denies change in stool character Musc Denies abnormal gait, Denies muscle cramps, Denies muscle weakness, Denies numbness, Denies radiating pain into limb and Denies tingling Neuro Denies abnormal gait, Denies dizziness, Denies syncope, Denies numbness, Denies tingling and Denies weakness Endo Denies palpitations Physical Exam Vital Signs: Last Vital Signs Pulse 86 03/20/24 12:51 BP 120/70 03/20/24 12:51 Pulse Ox 99 03/20/24 12:51 Oxygen Delivery Method Room Air 03/20/24 12:51 BMI result Body Mass Index 33.4 Const General: healthy appearing and no acute distress Orientation/consciousness: patient oriented x3 HEENT Head: Yes normal to inspection Eyes General: appearance normal, both eyes and all related structures Neck Neck: Yes normal visual inspection Chest Chest palpation & inspection: normal inspection of the chest Resp Effort & Inspection: normal respiratory effort Auscultation: clear to auscultation bilaterally Cardio Jugular venous distension: no JVD Palpation: normal PMI Rate: regular rate Rhythm: regular rhythm Heart sounds: S1 normal heart sound present, S2 normal heart sound present, no click, no gallops, no murmurs and no rubs GI Inspection: Yes normal to inspection Palpation (GI): Soft to palpation Skin General skin exam: no rashes or lesions noted Neuro General: patient oriented x3 Extrem General: Yes normal to inspection Psych Appearance: grossly normal Results Reviewed Results Reviewed: Echo Conclusions: - Normal left ventricular size, thickness, systolic function, and wall motion. The visually estimated ejection fraction is between 55-60%. Diastolic function is normal for age. - Normal right ventricular cavity size and systolic function. - Normal GLS -20%. Holter Conclusion: 1. Patient was monitored for total period of 2 days 2. Baseline was normal sinus with average heart of 65 beats per minute 3. Frequent sinus bradycardia noted with 45.5% of time heart rate below 60 beats per minute without significant pauses 4. No significant arrhythmias noted 5. Patient reported 1 event with symptoms of palpitation correlating with sinus rhythm Sleep Study: Normal sleep study. No evidence of sleep apean, and snoring was also minimal. Assessment & Plan Assessment & Plan (1) Palpitation: Code(s): R00.2 - Palpitations Category: Medical Plan: Holter showed aveage heart rate of 65 bpm. Frequent bradycardia noted mostly during sleep hours. Echocardiogram showed normal EF of 55-60%. Normal wall motion, LV size, thickness, and systolic function. Sleep study showed no sleep apnea. Patient reported often not feeling well-rested. Sleep study showed no sleep apnea. Patient reports feeling anxious. Discussed about avoidance of stimulants, sleep hygiene, and stress mitigation. Patient agrees. Will follow-up as needed. If symptoms increase or new symptoms to occur to call the office or ED care if needed. (2) Hypertension: Code(s): I10 - Essential (primary) hypertension Category: Medical Plan: Managaged by PCP. With goal. Coding Level of Care Code Est Pt Level 3 (63361) Diagnoses Palpitation R00.2 Hypertension I10
== END 2024-03-20 13:22 | disposition home or self-care (01) ==
PROVIDERS: PCP Internal Medicine; Visit Provider Nurse Practitioner
DX: R00.2 Palpitations (principal); I10 Essential (primary) hypertension
CPT/HCPCS: 99213

== ENCOUNTER → 2024-03-20 12:40 | Outpatient (BNVA) | payer MEDICAID, SELFPAY | PROVIDERS: PCP Internal Medicine; Visit Provider Nurse Practitioner | DX: R00.2 Palpitations (principal); I10 Essential (primary) hypertension | CPT/HCPCS: 99212 ==

== ENCOUNTER 2024-07-04 09:59 | Outpatient (REF) | payer MEDICAID, SELFPAY ==
[2024-07-04 11:16] LABS: MANUAL DIFF FLAG NO
[2024-07-04 11:23] LABS: Basophils Percent Auto 0.5 % (0-2); Eosinophils Absolute Auto 0.2 X10*3/uL (0.0-0.4); Eosinophils Percent Auto 2.5 % (0-4); Hematocrit 39.9 % (37.0-47.0); Hemoglobin 13.2 g/dl (12.0-16.0); Imm Gran Abs Auto 0.01 X10*3/uL (0.00-0.03); Imm Gran Pct Auto 0.2 % (0.0-0.4); Lymphocytes Percent Auto 33.8 % (20-40); Mean Corpuscular HGB Conc 33.1 g/dl (31.0-35.0); Mean Corpuscular Hemoglobin 30.6 pg (27.0-33.0); Mean Corpuscular Volume 92.6 fL (80.0-98.0); Mean Platelet Volume 10.3 fL (9.4-12.3); Monocytes Absolute Auto 0.4 X10*3/uL (0.1-1.2); Monocytes Percent Auto 6.6 % (2-11); Neutrophils Absolute Auto 3.4 x10*3/uL (2.0-8.3); Neutrophils Percent Auto 56.4 % (45-73); Platelet Count 377 X10*3/uL (160-400); Red Blood Count 4.31 X10*6/uL (4.20-5.50); Red Cell Distribution Width 12.4 % (11.0-16.0); White Blood Count 5.9 X10*3/uL (4.8-10.8)
[2024-07-04 11:37] LABS: Estimated Average Glucose 94 mg/dL; Hemoglobin A1c % 4.9 % (<6.0)
[2024-07-04 11:57] LABS: Alanine Aminotransferase 15 U/L (0-31); Albumin Level 4.3 g/dL (3.5-5.0); Alkaline Phosphatase 75 U/L (39-117); Anion Gap 12 (12-20); Aspartate Amino Transferase 18 U/L (5-31); Bilirubin Direct 0.2 mg/dL (0.0-0.5); Bilirubin Total 0.6 mg/dL (0.0-1.0); Blood Urea Nitrogen 11 mg/dL (9-16); Calcium 9.3 mg/dL (8.4-10.2); Carbon Dioxide 25 mmol/L (22-29); Chloride 105 mmol/L (96-108); Cholesterol 203 mg/dL (<200); Estimated Glomerular Filt Rate > 60; Glucose Random 89 mg/dL (60-115); HDL Cholesterol 56 mg/dL (>40); LDL Cholesterol Calculated 129 mg/dL (<100); Potassium 3.6 mmol/L (3.3-5.1); Sodium 138 mmol/L (135-145); TSH reflex Free T4 0.94 uIU/mL (0.32-4.0); Total Protein 8.7 g/dL (6.5-8.0); Triglycerides 92 mg/dL (<150)
[2024-07-04 12:07] LABS: Reflex LDLD? No
== END 2024-07-04 10:00 | disposition home or self-care (01) ==
LOC: HO.HHCL 09:59
PROVIDERS: Visit Provider Internal Medicine
DX: I10 Essential (primary) hypertension (principal); R00.2 Palpitations; R63.5 Abnormal weight gain
CPT/HCPCS: 36415; 80053; 80061; 82248; 83036; 84443; 85025

== ENCOUNTER 2024-08-05 11:39 | Outpatient (AMB) | payer MEDICAID, SELFPAY ==
--- NOTE | 2024-08-05 11:49 | A.OFFVIS_ITS ---
Vital Signs 08/05/24 11:51 Height 4 ft 9 in Weight 155 lb BMI 33.5 Handedness Right Intake Visit Reasons: New Pt - B/L hand numbness, EMG done 12/21/23 Intake Note: Jing is a 43 year old right hand dominant female who presents today as a new patient for bilateral hand numbness and tingling. EMG for left hand was done on 12/21/23. 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 She expresses she has locking in the left 1st and 2nd digits. Patient states her symptoms are worse at night. She has tried hand braces and says some days they offer relief. Tylenol and ibuprofen helped her in the beginning but no longer helps. Denies any prior injections or OT/PT. She would like to get some new hand braces in office today. Left hand is worse than right hand. Allergies No Known Allergies Allergy (Verified 08/05/24 11:51) HPI HPI New Pt - B/L hand numbness, EMG done 12/21/23: Details: Patient is a 43-year-old female who presents for evaluation of bilateral hand numbness, tingling, and pain. Patient states that the symptoms have now for approximately 2 years, and that EMG was done in December of 2023. The patient states that her numbness symptoms are intermittent, but daily, and worse at night. The patient also states that she has noticed some diminished strength in bilateral hands. Patient states that she has previously taken Tylenol and ibuprofen for relief, which used to help, but does not help anymore. Patient also states that she has some wrist braces, but these also do not help. Patient reports no particular incident or injury to cause this pain. No other acute complaints or concerns at this time. [facility] Medical History Palpitation Hypertension Carpal tunnel syndrome Pelvic adhesions Hx of ectopic Migraine headache Surgical History Hx of cholecystectomy Hx of bilateral salpingectomy Hx of section Family History Mother High blood pressure Stroke Brother High blood pressure Maternal Grandfather Stroke Social History Household Members: Significant Other Alcohol intake: never Patient Tobacco Use Status: Never used Tobacco Current occupational status: disabled Current occupation: right hand dominant Female Reproductive History Menstrual Age of Menarche: 13 Review of Systems Const All systems reviewed & are unremarkable except as noted in HPI and below Physical Exam Vital Signs: BMI result Body Mass Index 33.5 Extrem Other: Neuro: Normal sensation of the tips of all digits of bilateral hands at this time No thenar or intrinsic wasting. Good APB muscle firing and good finger cross. Vascular: Capillary refill brisk. ROM: Patient can make a fist and extend all their digits. Skin: No lacerations or abrasions noted. General: No ecchymosis. No erythema or evidence of infection. Results Reviewed Results Reviewed: IMPRESSION: Mild left median neuropathy across carpal tunnel. Otherwise, no significant abnormality was noted. MD ANURAG Augustine/JALEN Assessment & Plan Assessment & Plan (1) Carpal tunnel syndrome, left: Code(s): G56.02 - Carpal tunnel syndrome, left upper limb Category: Medical (2) Numbness and tingling of right hand: Code(s): R20.0 - Anesthesia of skin; R20.2 - Paresthesia of skin Category: Medical Plan 1. Carpal tunnel syndrome, left Symptoms intermittent, but daily, and worse at night Patient is educated about this condition Patient is educated about the treatment options available, namely surgery The patient states that she would like to have some time to think about potential surgical intervention Patient is educated about both the preoperative and postoperative courses for carpal tunnel release Patient will follow-up in 4 weeks for discussion of carpal tunnel release, sooner with any acute concerns 2. Numbness and tingling of right hand Symptoms intermittent, but daily, worse at night At this time, patient was informed that her EMG on the right was negative, and therefore there is no indication for acute surgical intervention on the right at this time Patient was amenable to this plan Patient was informed that if she continues to experience symptoms in the next 6- 7 months, we can discuss repeat EMG Coding Level of Care Code New Pt Level 3 (45216) Diagnoses Carpal tunnel syndrome, left G56.02 Numbness and tingling of right hand R20.0; R20.2
[2024-08-05 11:51] VITALS: BMI 33.5
== END 2024-08-05 12:10 | disposition home or self-care (01) ==
LOC: HO.HOS 11:39
PROVIDERS: PCP Internal Medicine
DX: G56.02 Carpal tunnel syndrome, left upper limb (principal); R20.0 Anesthesia of skin; R20.2 Paresthesia of skin
CPT/HCPCS: 99203

== ENCOUNTER 2024-08-05 15:40 | Outpatient (REF) | payer MEDICAID, SELFPAY ==
--- NOTE | ~2024-08-05 | MM_ITS ---
EXAMINATION: MM SCREENING DIGITAL BREAST TOMOSYNTHESIS, BILATERAL CLINICAL INFORMATION: Screening. Asymptomatic. COMPARISON: Mammography: Comparison is made with available priors TECHNIQUE: Digital breast mammography with tomosynthesis is performed in both the craniocaudal and mediolateral oblique views along with computer-aided detection (CAD). FINDINGS: There are scattered areas of fibroglandular density (ACR BI-RADS breast composition Category b). There are no significant masses, abnormal calcifications, or other abnormalities. MM/MM tomosynthesis screening BI IMPRESSION: No mammographic evidence of malignancy. ASSESSMENT: BI-RADS BI-RADS 1 - Negative RECOMMENDATION: Routine annual mammography screening. 1 year F/U This examination should not preclude the clinical evaluation of a suspicious palpable abnormality. This patient's information was entered into a reminder system with a target due date for their next mammogram. Electronically signed by: Tanya Carey DO 08/15/2024 06:36 PM EDT
== END 2024-08-05 15:41 | disposition home or self-care (01) ==
LOC: HO.MAMMO 15:40
PROVIDERS: PCP Internal Medicine; Visit Provider Internal Medicine
DX: Z12.31 Encounter for screening mammogram for malignant neoplasm of breast (principal)
CPT/HCPCS: 77063; 77067; 99212

== ENCOUNTER → 2024-08-05 16:15 | Outpatient (BNV) | payer MEDICAID, SELFPAY | PROVIDERS: PCP Internal Medicine; Visit Provider Internal Medicine | DX: Z12.31 Encounter for screening mammogram for malignant neoplasm of breast (principal) | CPT/HCPCS: 77063; 77067 ==

== ENCOUNTER 2024-09-02 10:57 | Outpatient (AMB) | payer MEDICAID, SELFPAY ==
--- NOTE | 2024-09-02 11:06 | A.OFFVIS_ITS ---
Vital Signs 09/02/24 11:08 Height 4 ft 9 in Weight 155 lb BMI 33.5 Handedness Right Intake Visit Reasons: OV-B/L hand numbness, discuss CTR Intake Note: Jing is a 43 year old right hand dominant female who presents today for a follow up of her bilateral hand pain. Hx of left hand carpal tunnel syndrome. EMG done on 12/21/23 and impression reads Mild left median neuropathy across carpal tunnel. Otherwise, no significant abnormality was noted. Patient reports her symptoms have not changed since her last visit and would like to discuss surgery. Allergies No Known Allergies Allergy (Verified 09/02/24 11:09) HPI HPI OV-B/L hand numbness, discuss CTR: Details: Patient is a 43-year-old female presents for evaluation of bilateral carpal tunnel syndrome to discuss potential surgical intervention. Patient states that her symptoms are still intermittent, but daily, and worse at night, but states that they have worsened since previous evaluation. 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 No other acute complaints or concerns this time [facility] Medical History Palpitation Hypertension Carpal tunnel syndrome Pelvic adhesions Hx of ectopic Migraine headache Surgical History Hx of cholecystectomy Hx of bilateral salpingectomy Hx of section Family History Mother High blood pressure Stroke Brother High blood pressure Maternal Grandfather Stroke Social History Household Members: Significant Other Alcohol intake: never Patient Tobacco Use Status: Never used Tobacco Current occupational status: disabled Current occupation: right hand dominant Female Reproductive History Menstrual Age of Menarche: 13 Physical Exam Vital Signs: BMI result Body Mass Index 33.5 Extrem Other: Neuro: Normal sensation of the tips of all digits of bilateral hands at this time No thenar or intrinsic wasting. Good APB muscle firing and slightly weakened finger cross. Vascular: Capillary refill brisk. ROM: Patient can make a fist and extend all their digits. Skin: No lacerations or abrasions noted. General: No ecchymosis. No erythema or evidence of infection. Results Reviewed Results Reviewed: IMPRESSION: Mild left median neuropathy across carpal tunnel. Otherwise, no significant abnormality was noted. MD ANURAG Augustine/JALEN Assessment & Plan Assessment & Plan (1) Carpal tunnel syndrome, left: Code(s): G56.02 - Carpal tunnel syndrome, left upper limb Category: Medical Plan 1. Carpal tunnel syndrome, left Symptoms intermittent, daily, worse at night I educated the patient about the condition. I discussed both operative and nonoperative treatment options. The patient would like to proceed with surgery. The risks and benefits of operative treatment were discussed with the patient and the patient wishes to proceed with surgery. These risks include, but are not limited to, risk of damage to blood vessels, nerves, tendons, infection, recurrence, incomplete relief of preoperative symptoms, persistent pain, possible need for further surgery, and the risks associated with regional blocks and/or anesthesia. Plan is to take the patient to the operating room at some point in the next few weeks for the following procedures: 1. Left carpal tunnel release under local anesthesia All of the preoperative paperwork including the consent was discussed today. All of the patient's questions were answered in the clinic today. The patient understands that they will be in contact with our surgical supervisor to discuss scheduling their procedure. Patient denies diabetes, blood thinners, asthma, heart issues, lung issues, kidney issues, or current smoking. Coding Level of Care Code Est Pt Level 4 (27014) Diagnoses Carpal tunnel syndrome, left G56.02
[2024-09-02 11:08] VITALS: BMI 33.5
== END 2024-09-02 11:38 | disposition home or self-care (01) ==
PROVIDERS: PCP Internal Medicine
DX: G56.02 Carpal tunnel syndrome, left upper limb (principal)
CPT/HCPCS: 99214

== ENCOUNTER → 2024-09-02 10:57 | Outpatient (BNVA) | payer MEDICAID, SELFPAY | PROVIDERS: PCP Internal Medicine | DX: G56.02 Carpal tunnel syndrome, left upper limb (principal) | CPT/HCPCS: 99212 ==

== ENCOUNTER 2024-11-07 09:20 | Outpatient (REF) | payer MEDICAID, SELFPAY ==
[2024-11-07 11:42] LABS: Erythrocyte Sedimentation Rate 21 MM/HR (0-20)
[2024-11-12 15:05] LABS: Anti Nuclear Antibody Pattern Nuclear, Speckled; Anti Nuclear Antibody Screen POSITIVE (NEGATIVE); Anti Nuclear Antibody Titer 1:40 titer
[2024-11-14 13:33] LABS: Cyclic Citrullinated Peptide <16 UNITS
== END 2024-11-07 09:21 | disposition home or self-care (01) ==
LOC: HO.HHCL 09:20
PROVIDERS: Visit Provider Internal Medicine
DX: M25.50 Pain in unspecified joint (principal)
CPT/HCPCS: 36415; 85652; 86038; 86039; 86140; 86200

== ENCOUNTER 2025-02-11 09:23 | Day surgery (SDC) | payer MEDICAID, SELFPAY ==
[2024-11-08 15:16] VITALS: BMI 32.3
--- NOTE | 2024-11-11 09:40 | HO.ANESPROP2 ---
HPI - Anesthesia Eval Consult details Narrative: 44yo F for Upper Endoscopy PMFSH Active Problems Active Problems: All Active Problems Numbness and tingling of right hand (Acute) Carpal tunnel syndrome, left (Acute) Pelvic pain (Acute) Abnormal uterine bleeding (AUB) (Acute) Hypertension (Acute) Palpitation (Acute) Past Medical History Medical History Palpitation Hypertension Carpal tunnel syndrome Pelvic adhesions Hx of ectopic Migraine headache Family History Family History Mother High blood pressure Stroke Brother High blood pressure Maternal Grandfather Stroke Family history of problems with anesthesia: No Surgical History Surgical History (Updated 11/08/24 @ 15:04 by Rena Don RN) History of esophagogastroduodenoscopy (EGD) (11/30/22) Hx of cholecystectomy Hx of bilateral salpingectomy Hx of section History of Problems with Anesthesia: No Social History Social History Household Members: Significant Other Alcohol intake: never Patient Tobacco Use Status: Never used Tobacco Current occupational status: disabled Current occupation: right hand dominant Meds Allergies Allergy/AdvReac Type Severity Reaction Status Date / Time No Known Allergies Allergy Verified 09/02/24 11:09 Home Medications ?Medication ?Instructions ?Recorded ?Confirmed ?Last Taken ?Type wifmktijtl-tmkicpxwmqgxh-xdljumwy 1 - 2 cap PO Q4H PRN Migraine 06/06/22 11/08/24 Unknown History 50 mg-325 mg-40 mg capsule Headache famotidine 20 mg tablet 20 mg PO BID 06/06/22 11/08/24 Unknown History hydrocodone 5 mg-acetaminophen 325 1 - 2 tab PO Q6H PRN pain 06/06/22 11/29/22 Unknown History mg tablet loperamide 2 mg capsule 4 mg PO DAILY 06/06/22 11/08/24 Unknown History omeprazole 40 mg capsule,delayed 40 mg PO DAILY 06/06/22 11/08/24 Unknown History release ondansetron HCl 4 mg tablet 4 mg PO Q8H PRN nausea/vomiting 06/06/22 11/29/22 Unknown History cholecalciferol (vitamin D3) 25 1 cap PO DAILY 11/28/22 11/08/24 Unknown History mcg (1,000 unit) capsule (Vitamin D3) meclizine 25 mg tablet 1 tab PO Q8H PRN Migraine Headache 11/28/22 11/08/24 Unknown History topiramate 50 mg tablet 1 tab PO BID 11/28/22 11/08/24 Unknown History carvedilol 6.25 mg tablet 6.25 mg PO BID 01/25/24 11/08/24 Unknown History hydrochlorothiazide 12.5 mg tablet 12.5 mg PO DAILY 08/05/24 11/08/24 Unknown History simethicone 80 mg chewable tablet 80 mg PO QID PRN Abdominal 08/05/24 11/08/24 Unknown History Distention albuterol sulfate 90 mcg/actuation 2 puff inhalation Q4-6H PRN 11/08/24 11/08/24 Unknown History aerosol inhaler (Ventolin HFA) Shortness Of Breath Or Wheezing amitriptyline 10 mg tablet 20 mg PO BEDTIME 11/08/24 11/08/24 Unknown History amlodipine 10 mg tablet 10 mg PO DAILY 11/08/24 11/08/24 Unknown History diclofenac sodium 1 % topical gel 4 g topical BID 11/08/24 11/08/24 Unknown History ibuprofen 800 mg tablet 800 mg PO TID 11/08/24 11/08/24 Unknown History sertraline 50 mg tablet 50 mg PO QAM 11/08/24 11/08/24 Unknown History Exam Height,Weight and Vital Signs: Height 4 ft 11 in Weight 72.575 kg Assessment and Plan Assessment Anesthesia Assessment: Chart Reviewed Final Anesthetic Review Family History of Problems with Anesthesia: No History of Problems with Anesthesia: No
[2025-02-11 09:46] VITALS: BP 112/71; PULSE 63; RESP 16; TEMP 36.6; O2SAT 100
[2025-02-11] MEDS: Lactated Ringers 1,000 ML 100 ML IVCONT (09:52)
--- NOTE | 2025-02-11 09:53 | MHC.SHP ---
Pre-Procedural Eval Section A - 24 Hr Update-Section A only Date of Service: 02/11/25 Section B - Complete if H&P > 30 days Chief Complaint: gerd, Details of Present Illness: see H*p NO CHANGES Relevant Family History (Specify if Yes): Yes Relevant Social History: Tobacco Use Present Medications: None Medical History: Significant History History of Previous Operations: No relevant previous surgery Allergies: Allergies Allergy/AdvReac Type Severity Reaction Status Date / Time No Known Allergies Allergy Verified 09/02/24 11:09 Review of Systems Sugical H&P ROS: Negative: Constitution, Cardiovascular, Respiratory, Neurological, Psychiatric, Hem-Onc, Allergic/Immunologic, Gastrointestinal, Genitourinary, Musculoskeletal, Integumentary, Endocrine and Eyes/Ears/Nose/Throat Exam Surgical H&P Exam: Normal: HEENT, Normal: Heart, Normal: Lungs, Normal: Extremities, Normal: Abdomen, Normal: Skin and Normal: Neurological Plan Diagnosis/Plan: Unchanged I have reviewed the history and physical and performed a pertinent physical examination on my patient. No changes have occurred unless specified. Time Spent With Patient Time: Total time managing care of this patient today ____ minutes.
--- NOTE | 2025-02-11 09:58 | HO.ANESPROP2 ---
Documented by User: Valerie Wang NP 02/10/25 09:40 HPI - Anesthesia Eval Consult details Narrative: 44yo F for Upper Endoscopy PMFSH Active Problems Active Problems: All Active Problems Numbness and tingling of right hand (Acute) Carpal tunnel syndrome, left (Acute) Pelvic pain (Acute) Abnormal uterine bleeding (AUB) (Acute) Hypertension (Acute) Palpitation (Acute) Past Medical History Medical History Palpitation Hypertension Carpal tunnel syndrome Pelvic adhesions Hx of ectopic Migraine headache Family History Family History Mother High blood pressure Stroke Brother High blood pressure Maternal Grandfather Stroke Family history of problems with anesthesia: No Surgical History Surgical History (Updated 11/08/24 @ 15:04 by Rena Don RN) History of esophagogastroduodenoscopy (EGD) (11/30/22) Hx of cholecystectomy Hx of bilateral salpingectomy Hx of section History of Problems with Anesthesia: No Social History Social History Household Members: Significant Other Alcohol intake: never Patient Tobacco Use Status: Never used Tobacco Second Hand Smoke Exposure: No Use of substances other than those prescribed or required for medical reasons: No Have you been hit, kicked, punched, or otherwise hurt by someone within the past year? If so, by whom?: No Are you DNR?: No Advance Directives: No Advance Directives Information Provided: Yes Advance Directives on File: No Current occupational status: disabled Current occupation: right hand dominant Meds Allergies Allergy/AdvReac Type Severity Reaction Status Date / Time No Known Allergies Allergy Verified 09/02/24 11:09 Home Medications ?Medication ?Instructions ?Recorded ?Confirmed ?Last Taken ?Type knkzjhollj-hjypfllrhjful-rtrvjypj 1 - 2 cap PO Q4H PRN Migraine 06/06/22 11/08/24 Unknown History 50 mg-325 mg-40 mg capsule Headache famotidine 20 mg tablet 20 mg PO BID 06/06/22 11/08/24 Unknown History hydrocodone 5 mg-acetaminophen 325 1 - 2 tab PO Q6H PRN pain 06/06/22 11/29/22 Unknown History mg tablet loperamide 2 mg capsule 4 mg PO DAILY 06/06/22 11/08/24 Unknown History omeprazole 40 mg capsule,delayed 40 mg PO DAILY 06/06/22 11/08/24 Unknown History release ondansetron HCl 4 mg tablet 4 mg PO Q8H PRN nausea/vomiting 06/06/22 11/29/22 Unknown History cholecalciferol (vitamin D3) 25 1 cap PO DAILY 11/28/22 11/08/24 Unknown History mcg (1,000 unit) capsule (Vitamin D3) meclizine 25 mg tablet 1 tab PO Q8H PRN Migraine Headache 11/28/22 11/08/24 Unknown History topiramate 50 mg tablet 1 tab PO BID 11/28/22 11/08/24 Unknown History carvedilol 6.25 mg tablet 6.25 mg PO BID 01/25/24 11/08/24 Unknown History hydrochlorothiazide 12.5 mg tablet 12.5 mg PO DAILY 08/05/24 11/08/24 Unknown History simethicone 80 mg chewable tablet 80 mg PO QID PRN Abdominal 08/05/24 11/08/24 Unknown History Distention albuterol sulfate 90 mcg/actuation 2 puff inhalation Q4-6H PRN 11/08/24 11/08/24 Unknown History aerosol inhaler (Ventolin HFA) Shortness Of Breath Or Wheezing amitriptyline 10 mg tablet 20 mg PO BEDTIME 11/08/24 11/08/24 Unknown History amlodipine 10 mg tablet 10 mg PO DAILY 11/08/24 11/08/24 Unknown History diclofenac sodium 1 % topical gel 4 g topical BID 11/08/24 11/08/24 Unknown History ibuprofen 800 mg tablet 800 mg PO TID 11/08/24 11/08/24 Unknown History sertraline 50 mg tablet 50 mg PO QAM 11/08/24 11/08/24 Unknown History Exam Height,Weight and Vital Signs: Height 4 ft 11 in Weight 72.575 kg Narrative Narrative: ECHO 2023 Conclusions: - Normal left ventricular size, thickness, systolic function, and wall motion. The visually estimated ejection fraction is between 55-60%. Diastolic function is normal for age. - Normal right ventricular cavity size and systolic function. - Normal GLS -20%. Assessment and Plan Assessment Anesthesia Assessment: Chart Reviewed Final Anesthetic Review Family History of Problems with Anesthesia: No History of Problems with Anesthesia: No Documented by User: Rukhsana Tidwell DO 02/11/25 10:00 PMFSH Past Medical History Medical History Palpitation Hypertension Carpal tunnel syndrome Pelvic adhesions Hx of ectopic Migraine headache Family History Family History Mother High blood pressure Stroke Brother High blood pressure Maternal Grandfather Stroke Family history of problems with anesthesia: No Surgical History Surgical History (Updated 11/08/24 @ 15:04 by Rena Don RN) History of esophagogastroduodenoscopy (EGD) (11/30/22) Hx of cholecystectomy Hx of bilateral salpingectomy Hx of section History of Problems with Anesthesia: Yes (PONV) Social History Social History Household Members: Significant Other Alcohol intake: never Patient Tobacco Use Status: Never used Tobacco Second Hand Smoke Exposure: No Use of substances other than those prescribed or required for medical reasons: No Have you been hit, kicked, punched, or otherwise hurt by someone within the past year? If so, by whom?: No Are you DNR?: No Advance Directives: No Advance Directives Information Provided: Yes Advance Directives on File: No Current occupational status: disabled Current occupation: right hand dominant Meds Allergies Allergy/AdvReac Type Severity Reaction Status Date / Time No Known Allergies Allergy Verified 09/02/24 11:09 Home Medications ?Medication ?Instructions ?Recorded ?Confirmed ?Last Taken ?Type lirgxyglvt-zwjtavrklhdjh-rfhzboqe 1 - 2 cap PO Q4H PRN Migraine 06/06/22 11/08/24 Unknown History 50 mg-325 mg-40 mg capsule Headache famotidine 20 mg tablet 20 mg PO BID 06/06/22 11/08/24 Unknown History hydrocodone 5 mg-acetaminophen 325 1 - 2 tab PO Q6H PRN pain 06/06/22 11/29/22 Unknown History mg tablet loperamide 2 mg capsule 4 mg PO DAILY 06/06/22 11/08/24 Unknown History omeprazole 40 mg capsule,delayed 40 mg PO DAILY 06/06/22 11/08/24 Unknown History release ondansetron HCl 4 mg tablet 4 mg PO Q8H PRN nausea/vomiting 06/06/22 11/29/22 Unknown History cholecalciferol (vitamin D3) 25 1 cap PO DAILY 11/28/22 11/08/24 Unknown History mcg (1,000 unit) capsule (Vitamin D3) meclizine 25 mg tablet 1 tab PO Q8H PRN Migraine Headache 11/28/22 11/08/24 Unknown History topiramate 50 mg tablet 1 tab PO BID 11/28/22 11/08/24 Unknown History carvedilol 6.25 mg tablet 6.25 mg PO BID 01/25/24 11/08/24 Unknown History hydrochlorothiazide 12.5 mg tablet 12.5 mg PO DAILY 08/05/24 11/08/24 Unknown History simethicone 80 mg chewable tablet 80 mg PO QID PRN Abdominal 08/05/24 11/08/24 Unknown History Distention albuterol sulfate 90 mcg/actuation 2 puff inhalation Q4-6H PRN 11/08/24 11/08/24 Unknown History aerosol inhaler (Ventolin HFA) Shortness Of Breath Or Wheezing amitriptyline 10 mg tablet 20 mg PO BEDTIME 11/08/24 11/08/24 Unknown History amlodipine 10 mg tablet 10 mg PO DAILY 11/08/24 11/08/24 Unknown History diclofenac sodium 1 % topical gel 4 g topical BID 11/08/24 11/08/24 Unknown History ibuprofen 800 mg tablet 800 mg PO TID 11/08/24 11/08/24 Unknown History sertraline 50 mg tablet 50 mg PO QAM 11/08/24 11/08/24 Unknown History Exam Exam Date and Time: 02/11/25 0958 Height,Weight and Vital Signs: Height 4 ft 11 in Weight 72.575 kg Vital Signs Temperature 97.8 F 02/11/25 09:46 Pulse Rate 63 02/11/25 09:46 Respiratory Rate 16 02/11/25 09:46 Blood Pressure 112/71 04/08/25 09:46 Pulse Oximetry 100 02/11/25 09:46 Oxygen Delivery Method Room Air 02/11/25 09:46 Temperature 97.8 F 02/11/25 09:46 Pulse Rate 63 02/11/25 09:46 Respiratory Rate 16 02/11/25 09:46 Blood Pressure 112/71 02/11/25 09:46 Pulse Oximetry 100 02/11/25 09:46 Oxygen Delivery Method Room Air 02/11/25 09:46 Airway Mallampati Class: II TM Dist: >3cm Neck ROM: Full Loose/Missing/Broken Teeth: No (patient denies any loose or broken teeth) Heart: S1S2 Lungs: CTAB Assessment and Plan Assessment Anesthesia Assessment: Anesthesia Plan Discussed and Chart Reviewed Final Anesthetic Review Family History of Problems with Anesthesia: No History of Problems with Anesthesia: Yes (PONV) NPO: Yes ASA Class: II Final Preanesthetic Review: No Changes in Pt Med Stat, Meds/Allgs Chart Reviewed, Consent Obtained/Reviewed and Anes Risks/Benef Reviewed Patient Risk: Low Procedure Risk: Low Anesthetic Plan Anesthetic Plan: MAC: and Agree w/ Assess. and Plan Disposition: Standard PACU
[2025-02-11 10:17] VITALS: BP 87/41; PULSE 73; RESP 18; TEMP 36.2; O2SAT 93
[2025-02-11 10:32] VITALS: BP 107/62; PULSE 68; RESP 16; TEMP 36.2; O2SAT 100
--- NOTE | 2025-02-11 10:33 | OP_ITS ---
DATE OF SERVICE: 02/11/2025 SURGEON: Jayy Fletcher MD INDICATIONS: Ayala's esophagus. PREOPERATIVE DIAGNOSIS: POSTOPERATIVE DIAGNOSIS: PROCEDURE PERFORMED: Upper endoscopy with biopsy. ESTIMATED BLOOD LOSS: COMPLICATIONS: ANESTHESIA: Monitored anesthesia care. ASSISTANTS: SPECIMENS: DESCRIPTION OF PROCEDURE: A history and physical were performed. The risks and benefits of the procedure were explained to the patient. Informed consent was obtained. The patient was placed in the left lateral decubitus position. The Olympus videogastroscope was introduced into the esophagus, stomach, and duodenum. Examination was performed. The scope was removed. She tolerated the procedure well and was returned to recovery area in stable condition. FINDINGS: Esophagus: The esophagus was normal. There was no esophagitis. There was an irregular EG junction with a less than 1 cm area of Ayala esophagus. This was biopsied. Stomach: The stomach showed no evidence of masses, ulcers, or polyps. Duodenum: The bulb and 2nd portion were normal. IMPRESSION: Ayala esophagus. RECOMMENDATION: Follow up the biopsy results. MD CORI Wilks/MODL / [id number]
== END 2025-02-11 10:55 | disposition home or self-care (01) ==
PROVIDERS: PCP Internal Medicine; Visit Provider Internal Medicine Gastroenterology
PROC: 0DJ08ZZ Inspection of Upper Intestinal Tract, Via Natural or Artificial Opening Endoscopic (ICD-10-PCS; CPT 43235; principal; 2025-02-11 10:40)
DX: K22.70 Barrett's esophagus without dysplasia (principal); K21.9 Gastro-esophageal reflux disease without esophagitis; I10 Essential (primary) hypertension; Z79.899 Other long term (current) drug therapy
CPT/HCPCS: 43239; 88305; 88313; J2003; J2704

== ENCOUNTER 2025-07-18 09:42 | Outpatient (REF) | payer MEDICAID, SELFPAY ==
--- OUTSIDE RECORDS SUMMARY | 2024-11-12 04:30 | XMS_ITS ---
Author Organization [facility] Address [address] [place] [phone] Care Team Providers Care Boat Mechanic Name Role Phone Dulce Whipple, Latia Primary Care Provider Pelon Fletcher Jr, Jayy Sprague REASON FOR VISIT gerd Encounters Encounter Location Date Provider Diagnosis [facility] [place] [address] [place], [place] [phone] 11/12/2024 Jayy Fletcher Jr Plan Of Treatment No Information Progress Notes * CARMELA RICCIDOB: 0 (44 yo F)Acc No.[id number]:11/12/2024 EGD/MAC Patient: CARMELA MCCARTHY Provider: Sourav Fletcher MD :1980 A ge:44 Y S ex:Female Date:11/12/2024 Address:[address] [place], [place] [phone] Pcp:Latia Cardona M.D. Subjective: * Chief Complaints: * 1 . Gerd. * Medical History: Objective: * Vitals: Assessment: Plan: * Treatment: * * The named appointment provid er may or may not be the originator of this progress note, and it is not deemed complete until electronically signed by the appointment provider. Sign off status: Pending * Provider: Sourav Fletcher MD Date: 0 11/12/2024 Generated for Printi ng/Faxing/eTransmitting on: 0 07/18/2025 10:50 AM EDT
--- OUTSIDE RECORDS SUMMARY | 2025-01-14 05:40 | XMS_ITS ---
Author Organization [facility] Address [address] [place] [phone] Care Team Providers Care Roll Dough Divider Name Role Phone Dulce Whipple, Latia Primary Care Provider Pelon Fletcher Jr, Jayy Sprague [phone] REASON FOR VISIT gerd Encounters Encounter Location Date Provider Diagnosis [facility] [place] Out[place] [address] [place], [place] [phone] 01/14/2025 Jayy Fletcher Jr Plan Of Treatment No Information Progress Notes * CARMELA RICCIDOB: 0 (44 yo F)Acc No.[id number]:01/14/2025 EGD/MAC Patient: CARMELA MCCARTHY Provider: Sourav Fletcher MD :1980 A ge:44 Y S ex:Female Date:01/14/2025 Address:[address] [place], [place] [phone] Pcp:Latia Cardona M.D. Subjective: * Chief Complaints: * 1 . Gerd. * Medical History: Objective: * Vitals: Assessment: Plan: * Treatment: * * The named appointment provid er may or may not be the originator of this progress note, and it is not deemed complete until electronically signed by the appointment provider. Sign off status: Pending * Provider: Sourav Fletcher MD Date: 0 01/14/2025 Generated for Printi ng/Faxing/eTransmitting on: 0 07/18/2025 10:50 AM EDT
--- OUTSIDE RECORDS SUMMARY | 2025-02-11 06:40 | XMS_ITS ---
Author Organization [facility] Address [address] [place] [phone] Care Team Providers Care Psychological Operations Name Role Phone Dulce Whipple, Latia Primary Care Provider Jayy Wang Jr REASON FOR VISIT Gerd Encounters Encounter Location Date Provider Diagnosis [facility] [place] [address] [place] [phone] 02/11/2025 Jayy Fletcher Jr Ayala''s esophagus without dysplasia K22.70 Assessments Encounter Date Diagnosis (ICD Code) Assessment Notes Treatment Notes Treatment Clinical Notes Section Notes 02/11/2025 Ayala''s esophagus without dysplasia (ICD-10 - K22.70) Plan Of Treatment No Information Progress Notes * CARMELA RICCIDOB: 0 (44 yo F)Acc No.[id number]:02/11/2025 EGD/MAC Patient: CARMELA MCCARTHY Provider: Sourav Fletcher MD :1980 A ge:44 Y S ex:Female Date:02/11/2025 Address:[address] [place], [place] [phone] Pcp:Latia Cardona M.D. Subjective: * Chief Complaints: * 1 . Gerd. * Medical History: Objective: * Vitals: Assessment: * Assessment: 1. B arrett''s esophagus without dysplasia - K22.70 (Primary) Plan: * Treatment: * Procedure Codes: 4 3239 UPPER GI ENDOSCOPY, BIOPSY * * The named appointment provid er may or may not be the originator of this progress note, and it is not deemed complete until electronically signed by the appointment provider. Sign off status: Pending * Provider: Sourav Fletcher MD Date: 0 02/11/[address]/Eboni/Luz on: 0 07/18/2025 10:50 AM EDT
--- OUTSIDE RECORDS SUMMARY | 2025-05-19 06:00 | XMS_ITS ---
Author Organization [facility] Address [address] [place] [phone] Care Team Providers Care Police Investigator Name Role Phone Dulce Whipple, Latia Primary Care Provider Pelon Fletcher Jr, Jayy Sprague REASON FOR VISIT gerd Encounters Encounter Location Date Provider Diagnosis [facility] [address] [place] [phone] 05/19/2025 Jayy Fletcher Jr Plan Of Treatment No Information Progress Notes * CARMELA RICCIDOB: 0 (44 yo F)Acc No.[id number]:05/19/2025 Progress Notes Patient: CARMELA MCCARTHY Provider: Sourav Fletcher MD :1980 A ge:44 Y S ex:Female Date:05/19/2025 Address:[address] [place], [place] [phone] Pcp:Latia Cardona M.D. Subjective: * Chief Complaints: * 1 . Gerd. * Medical History: Objective: * Vitals: Assessment: Plan: * Treatment: * * The named appointment provid er may or may not be the originator of this progress note, and it is not deemed complete until electronically signed by the appointment provider. Sign off status: Pending * Provider: Sourav Fletcher MD Date: 0 05/19/2025 Generated for Printi ng/Faxing/eTransmitting on: 0 07/18/2025 10:51 AM EDT
--- OUTSIDE RECORDS SUMMARY | 2025-07-18 10:50 | XMS_ITS | Encounter Summary ---
Author Organization [facility] Address [address] [facility] 7[address] [place] [address] Care Team Providers Care Solid Propellant Processor Name Role Phone Latia Prieto MD Primary Care Provide r Encounter Details Date Type Department Care Team (Late st Contact Info) Description 08/03/2023 Orders Only [facility] [address], [place] [phone] Provider, MD Mae Social History Tobacco Use Types Packs/Day Years Used Date Smoking Tobacco: Never Assessed Comments Unknown Sex and Gender Information Value Date Recorded Sex Assigned at Female 09/05/2022 10:27 AM EDT Legal Sex Female 10:27 AM EDT Gender Identity Female 09/05/2022 10:27 AM EDT Sexual Orientation Straight 09/05/2022 10 :27 AM EDT documented as of this encounter Plan of Treatment Upcoming Encounters Date Type Department Care Team (Late st Contact Info) Description 11/04/2025 10:00 AM EST Office Visit [facility] [address] [place], [place] [phone] Criselda Pappas [address] [place], [place] [phone] documented as of this encounter Procedures Procedure Name Priority Date/Time Associated Diagnosis Comments HM PAP/HPV Routine 06/06/2022 documented in this encounter Results * Hm Pap Smear (06/06/2022) Historical Provider HEALTH MAINTENANCE Final Result documented in this encounter Visit Diagnoses Not on filedocumented in this encounter Care Teams Solid Propellant Processor Relationship Specialty Start Date End Date Latia Prieto MD [address] [place], [place] [phone] PCP - General Family Medicine 05/13/19 documented as of this encounter
--- OUTSIDE RECORDS SUMMARY | 2025-07-18 10:51 | XMS_ITS | Patient Health Record ---
Author Organization [facility] Address [address] [facility] [address] [place] [address] Care Team Providers Care Broadcast Director Operations Name Role Phone Dulce Whipple, Latia Primary Care Provider Jayy Wang Jr Unavailable [phone] Allergies No Known Allergies Results Component Value Reference Range Notes Pathology Reviewed date:02/14/2025 01:54:20 PM Interpretation: Performing Lab:[facility], [address] [place] [phone] Notes/Report: Reason For Referral Referring Provider First Name Latia Referring Provider Last Name Dulce Referred Organization [facility] Referred Provider Jayy Fletcher Jr Referred Address [address] [place] [address],[facility], [place],[address], Referred Provider Specialty Gastroentero logy Referral Priority Routine Medications Medication SIG (Take, Route, Frequency, Duration) Notes Start Date End Date Status hydroCHLOROthiazide 12.5 MG TAKE 1 TABLE T BY MOUTH EVERY DAY Oral for 90 Active Gas Relief 80 MG CHEW 1 TABLET BY MOUTH 4X DAILY NEEDED AFTER MEALS AND AT BEDTIME Oral for 30 Active Vitamin D2 Active Ibuprofen 800 MG TAKE 1 TABLET BY MOUTH THREE TIMES A DAY WITH FOOD Oral for 30 Active Topiramate 50 MG TAKE 1 TABLET BY MOUTH TWICE DAILY Oral for 30 [id number],Unavai lable Active Propranolol HCl 10 MG TAKE 1 TABLET BY MOUTH EVERY DAY Oral for 30 Active Sertraline HCl 50 MG TAKE 1 TABLET BY MOUTH EVERY DAY IN THE MORNING Oral for 30 Active Loperamide HCl 2 MG PLEASE SEE ATTACHED FOR DETAILED DIRECTIONS Oral for 4 Active Gabapentin 100 MG TAKE 1 CAPSULE BY MOUTH EVERY DAY AT BEDTIME , MAY INCREASE TO 3 CAPSULES DAILY OVER 10 DAYS Oral for 20 Active Simethicone 80 MG CHEW 1 TABLET BY MOUTH 4X DAILY as directED AFTER MEALS AND AT BEDTIME for 30 days Active Vitamin D3 Active Diclofenac Sodium 1 % APPLY 4 G TOPICALLY 2 TIMES DAILY. External for 30 Active Famotidine 20 MG TAKE 1 TABLET BY MOUTH TWICE A DAY Oral for 30 Active Carvedilol 6.25 MG TAKE 1 TABLET BY MOUTH WITH BREAKFAST AND EVENING MEAL Oral for 90 Active Kngstefjom-OXSW-Qgicqoip 50-325-40 MG TAKE 1 - 2 CAPSULES BY MOUTH EVERY 4 HOURS NEEDED NOT TO EXCEED 6 CAPSULES PER DAY Oral for 3 Active Meclizine HCl 25 MG TAKE ONE TABLET BY MOUTH UP TO EVERY 8 HOURS (AT BEDTIME AND NEEDED DIRECTED) Oral for 20 Active amLODIPine Besylate 10 MG TAKE 1 TABLET BY MOUTH EVERY DAY Oral for 90 Active Immunizations Vaccine Route Administration Date Status Comme nts Influenza Unknown 02/03/2022 Refused Influenza Unknown 06/06/2024 Refused Social History Tobacco Use: Social History Observation Description Date Details (start date - stop date) Never Smoker NA - NA Tobacco Use/Smoking Question Answer Notes Patient is a nonsmoker Alcohol Screen Question Answer Notes Did you have a drink containing alcohol in the p ast year? 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) Active confirmed Problem Gastroesophageal reflux disease (038113853) Gastroesophageal reflux disease (K21.9) Active confirmed Problem [id number] Gastroesophageal reflux disease without esophagitis (K21.9) Active confirmed Encounters Encounter Location Date Provider Diagnosis [facility] [place] [address] [place] [phone] 02/11/2025 Jayy Fletcher Jr Ayala''s esophagus without dysplasia K22.70 [facility] [address] [facility] [address] [place] [address] 02/14/2025 Jayy Fletcher Jr Assessments Encounter Date Diagnosis (ICD Code) Assessment Notes Treatment Notes Treatment Clinical Notes Section Notes 02/11/2025 Ayala''s esophagus without dysplasia (ICD-10 - K22.70) Plan Of Treatment Future Test Test Name Order Date UPPER GI ENDOSCOPY 11/09/2022 UPPER GI ENDOSCOPY 06/06/2024 Insurance Providers Payer Name Payer Address Payer Phone Subscriber Number Group Number Insured Name Patient Relationship to Insured Coverage Start Date Coverage End Date [facility] [address] [place] [phone] [id number] CARMELA RICCI Self - patient is the insured Medical (General) History Medical History History ICD Code Migraines Gastroesophageal reflux disease Carpal tunnel syndrome vertigo high blood pressure Surgical History Surgery Date(Month/Year) cholecystectomy section x2 Ectopic with bilateral salping ectomy
--- OUTSIDE RECORDS SUMMARY | 2025-07-18 10:51 | XMS_ITS | Encounter Summary ---
Author Organization [employer] Address [address] [place] [address] Care Team Providers Care Tenterer Name Role Phone Latia Prieto MD Primary Care Provide r Reason for Visit * Reason Comments Med Refill Encounter Details Date Type Department Care Team ([facility] Contact Info) Description 08/18/[address] [facility] [address] [place], [place] [phone] Karolina Ibarra MD [address] [place], [place] [phone] Essential hypertension Social History Tobacco Use Types Packs/Day Years Used Date Smoking Tobacco: Never Passive Smoke Exposure: Never Smokeless Tobacco: Never Alcohol Use Standard Drinks/Week Comments Never 0 (1 standard drink = 0.6 oz pur e alcohol) Depression Answer Date Recorded Patient Health Questionnaire-9 Score 17 01/16/2024 Patient Health Questionnaire-9 Score 17 01/16/2024 Last PHQ-9: Questionnaire Data Not on file 0 01/16/2024 Housing Stability Answer Date Recorded What is your housing situation today? I have maira alfonso 11/21/[address] you li ve. Do you have problems with any of the following? None of the above 11/21/2023 Food Insecurity Answer Date Recorded Within the past 12 months, y ou worried that your food would run out before you got money to buy more: Never True 11/21/2023 Within the past 12 months,th e food you bought just didn't last and you didn't have enough money to get more: Never True Transportation Answer Date Recorded In the past 12 months, has l ack of transportation kept you from medical appts, meetings, work or from getting things needed for daily living? No 11/21/2023 Utilities Answer Date Recorded In the past 12 months, has t he electric, gas, oil or water company threatened to shut off services in your home? No 11/21/2023 Depression Answer Date Recorded Patient Health Questionnaire-2 Score 3 01/16/2024 Comments Unknown Sex and Gender Information Value [...] Description 11/04/2025 10:00 AM EST Office Visit [facility] [address] [place] [address] Criselda Pappas [address] [place] [address] documented as of this encounter Visit Diagnoses Diagnosis Essential hypertension Unspecified essential hypertension documented in this encounter Additional Health Concerns Assessment Noted Time PHQ-9 Depression Total Score: 17 024 11:19 AM EDT documented as of this encounter Care Teams Tenterer Relationship Specialty Start Date End Date Latia Pireto MD [address] [place] [address] PCP - General Family Medicine 05/13/19 documented as of this encounter
--- OUTSIDE RECORDS SUMMARY | 2025-07-18 10:51 | XMS_ITS | Clinical Summary ---
Author Organization [address] [facility] Address [address] [place] [address] Phone Care Team Providers Care Utility Plant Operative Name Role Phone Physician, Pcp Unknown Primary Care Provider Brisa vailable Medications diclofenac (VOLTAREN) 1 % topical gel Apply 4 g topically 2 times daily. Active omeprazole (PriLOSEC) [address] capsule Take 1 capsule (20 mg total) by mouth 1 (one) time each day. Active ALBUTEROL SULFATE INHL Inhale into the lungs. Active ibuprofen (ADVIL,MOTRIN) 800 mg tablet Take 1 tablet (800 mg total) by mouth every 8 (eight) hours if needed. Active AMLODIPINE BESYLATE, BULK, MISC Take by mouth. Activ e CARVEDILOL ORAL Take by mouth. Active sertraline HCl (SERTRALINE ORAL) Take by mouth. Activ e Encounters Date Type Department Care Team Description 06/18/2025 10:15 AM EDT Office Visit Orthopedic Surgery [facility] [address] [place] [phone] Sachin Ovalle DPM Neuritis (Primary Dx); Metatarsalgia of both feet; Posterior tibial tendon dysfunction (PTTD) of both lower extremities 06/06/2025 Telephone Orthopedic Surgery [facility] [address] [phone] Sachin Ovalle DPM from Last 3 Months Social History Tobacco Use Types Packs/Day Years Used Date Smoking Tobacco: Never Assessed Comments Unknown Sex and Gender Information Value Date Recorded Sex Assigned at Not on file Legal Sex Female 9:08 PM EST Gender Identity Not on file Sexual Orientation Not on file Last Filed Vital Signs Vital Sign Reading Time Taken Comments Blood Pressure - - Pulse - - Temperature - - Respiratory Rate - - Oxygen Saturation - - Inhaled Oxygen Concentration - - Weight 73 kg (160 lb 15 oz) 06/18/2025 10:12 AM EDT Height 152.4 cm (5') 06/18/2025 10:12 AM EDT Body Mass Index 31.43 06/18/2025 10:12 AM EDT Plan of Treatment Health Maintenance Due Date Last Done Comments Breast Cancer Screening 1980 Cervical Cancer Screening: P ap Smear 2001 Hepatitis C Screening 12/01/2023 Social Influencers of Health Screening 12/01/2023 Depression Screening 11/06/2024 Hypertension/CHF/CAD Annual BMP Blood Test 12/16/2024 COVID-19 Vaccine ( - 2023-2 5 season) 2025 Influenza Vaccine (#1) 2025 Cholesterol Screening (Lipid Panel) 07/04/2029 07/04/2024 DTaP,Tdap,and Td Vaccines (3 - Td or Tdap) 09/30/2034 09/30/2024, 04/13/2011 HIV Screening Completed 08/09/2022 Hepatitis B Vaccines Completed 05/08/2025, 12/05/2024, 11/07/2024 HIB Vaccines Aged Out No longer eligi ble based on patient's age to complete this topic HPV Vaccines Aged Out No longer eligi ble based on patient's age to complete this topic Hepatitis A Vaccines Aged Out No long er eligible based on patient's age to complete this topic IPV Vaccines Aged Out No longer eligi ble based on patient's age to complete this topic MMR Vaccines Aged Out No longer eligi ble based on patient's age to complete this topic Meningococcal ACWY Vaccine Aged Out N o longer eligible based on patient's age to complete this topic Meningococcal B Vaccine Aged Out No l onger eligible based on patient's age to complete this topic Pneumococcal Vaccine: Pediatrics (0 to 5 Years) and At-Risk Patients (6 to 49 Years) Aged Out No longer eligible b ased on patient's age to complete this topic RSV Immunization Patients Under 20 months Aged Out No longer eligible b ased on patient's age to complete this topic Varicella Vaccines Aged Out No longer eligible based on patient's age to complete this topic Insurance MEDICAID - [place] Care Teams Utility Plant Operative Relationship Specialty Start Date End Date Physician, Pcp Unknown PCP - General 10/08/24
--- OUTSIDE RECORDS SUMMARY | 2025-07-18 10:51 | XMS_ITS | Encounter Summary ---
Author Organization [employer] Address [address] [place] [address] Care Team Providers Care Supervisor Type Disk Quality Control Name Role Phone Latia Prieto MD Primary Care Provide r Reason for Visit * Reason Onset Date Comments Med Refill 11/04/2024 Encounter Details Date Type Department Care Team ([facility] Contact Info) Description 11/04/2024 Telephone [facility] [address] [place], [place] [phone] Latia Prieto MD [address] [place], [place] [phone] Med Refill Social History Tobacco Use Types Packs/Day Years Used Date Smoking Tobacco: Never Passive Smoke Exposure: Never Smokeless Tobacco: Never Alcohol Use Standard Drinks/Week Comments Never 0 (1 standard drink = 0.6 oz pur e alcohol) Depression Answer Date Recorded Patient Health Questionnaire-9 Score 17 09/30/2024 Patient Health Questionnaire-9 Score 17 09/30/2024 Last PHQ-9: Questionnaire Data Not on file 1 11/30/2023 Housing Stability Answer Date Recorded What is [...] Answer Date Recorded Patient Health Questionnaire-2 Score 5 09/30/2024 Comments Unknown Sex and Gender Information Value Date Recorded Sex Assigned at Female 09/05/2022 10:27 AM EDT Legal Sex Female 10:27 AM EDT Gender Identity Female 09/05/2022 10:27 AM EDT Sexual Orientation Straight 09/05/2022 10 :27 AM EDT documented as of this encounter Miscellaneous Notes * Telephone Encounter - Tamara Medrano LPN - 11/04/2024 12:21 PM EST Medication was sent to [id number] on 09/30/24 with 4 refills. * Telephone Encounter - Julian Kelly - 11/04/2024 12:05 PM EST TC from pt requesting medication refill. Medications needing refill : [id number] [id number] MG tablet To be sent to: [facility]/pharmacy #[id number] - [address] documented in this encounter Plan of Treatment Upcoming Encounters Date Type Department Care Team (Late st Contact Info) Description 11/04/2025 10:00 AM EST Office Visit [facility] [address] [place], [place] [phone] Criselda Pappas [address] [place], [place] [phone] documented as of this encounter Visit Diagnoses Not on filedocumented in this encounter Additional Health Concerns Assessment Noted Time PHQ-9 Depression Total Score: 17 024 11:42 AM EST documented as of this encounter Care Teams Supervisor Type Disk Quality Control Relationship Specialty Start Date End Date Latia Prieto MD [address] [place] [address] [place] [id number] PCP - General Family Medicine 05/13/19 documented as of this encounter
--- OUTSIDE RECORDS SUMMARY | 2025-07-18 10:51 | XMS_ITS | Clinical Summary ---
Author Organization [employer] Address [address] [facility] [address] [place] [address] Care Team Providers Care Nuclear Medicine Specialist Name Role Phone Latia Prieto MD Primary Care Provide r Allergies No known active allergies Medications * This document contains information received from the source organization and may not represent a complete record from that organization. Blood Pressure Monitoring (Blood Pressure Cuff) miscIndications: Essential hypertension 1 each Once daily. 1 each 03/07/20 24 Active famotidine (Pepcid) 20 MG tablet TAKE 1 TABLET BY MOUTH TWICE A DAY 180 tablet 1 03/25/20 25 Active sertraline (Zoloft) 50 MG tabletIndication s:Generalized anxiety disorder Take 1 tablet (50 mg) by mouth in the morning. 30 tablet 2 07/09/20 25 Active hydrOXYzine pamoate (Vistaril) 25 MG capsuleIndicatio ns:Generalized anxiety disorder TAKE 1 CAPSULE (25 MG) BY MOUTH EVERY 8 (EIGHT) HOURS IF NEEDED FOR ITCHING FOR UP TO 20 DAYS. 30 capsule 1 07/09/20 25 Active hydroCHLOROthiaz froilan (HYDRODiuril) 25 MG tabletIndication s:Essential hypertension Take 1 tablet (25 mg) by mouth Once per day. 30 tablet 11 07/09/20 25 026 Active amLODIPine (Norvasc) 10 MG tabletIndication s:Essential hypertension Take 1 tablet (10 mg) by mouth Once per day. 90 tablet 1 07/09/20 25 Active gabapentin (Neurontin) 100 MG capsuleIndicatio ns:Fibromyalgia Take 3 capsules (300 mg) by mouth every 8 (eight) hours. 90 capsule 1 07/09/20 25 026 Active cholecalciferol (Vitamin D3) 25 MCG (1000 UT) tabletIndication s:Low vitamin D level Take 1 tablet (25 mcg) by mouth Once per day. 90 tablet 1 07/09/20 25 Active amitriptyline (Elavil) 10 MG tabletIndication s:Chronic migraine with aura without status migrainosus, not intractable Take 1 tablet (10 mg) by mouth at bedtime. 30 tablet 07/09/20 25 025 Active albuterol (Ventolin HFA) 108 (90 Base) MCG/ACT inhalerIndicatio ns:Wheezing INHALE 2 PUFF BY MOUTH EVERY 4-6 HOURS NEEDED 18 g 1 07/09/20 25 Active butalbital-aceta minophen-caffein e 50-325-40 MG tabletIndication s:Chronic migraine with aura without status migrainosus, not intractable TAKE 1 TO 2 TABLETS BY MOUTH EVERY 4 HOURS NEEDED NOT TO EXCEED 6 TABLETS PER 24 HOURS 15 tablet 4 07/09/20 25 Active omeprazole (PriLOSEC) [address] capsuleIndicatio ns:Gastroesophag eal reflux disease, unspecified whether esophagitis present TAKE 1 CAPSULE BY MOUTH EVERY DAY BEFORE A MEAL 90 capsule 1 07/09/20 25 Active ibuprofen 800 MG tabletIndication s:Pain TAKE 1 TABLET BY MOUTH THREE TIMES A DAY WITH FOOD 90 tablet 07/09/20 25 Active amitriptyline (Elavil) 10 MG tabletIndication s:Chronic migraine with aura without status migrainosus, not intractable Take 1 tablet (10 mg) by mouth at bedtime. 30 tablet 03/07/20 24 025 Discontinued(Re order (will not trigger notification to Pharmacy)) gabapentin (Neurontin) 100 MG capsuleIndicatio ns:Fibromyalgia Take 3 capsules (300 mg) by mouth every 8 (eight) hours. 90 capsule 1 09/30/20 24 025 Discontinued(Re order (will not trigger notification to Pharmacy)) albuterol (Ventolin HFA) 108 (90 Base) MCG/ACT inhalerIndicatio ns:Wheezing INHALE 2 PUFF BY MOUTH EVERY 4-6 HOURS NEEDED 18 g 1 11/05/20 24 025 Discontinued(Re order (will not trigger notification to Pharmacy)) hydroCHLOROthiaz froilan (HYDRODiuril) 25 MG tabletIndication s:Essential hypertension Take 1 tablet (25 mg) by mouth Once per day. 30 tablet 11 11/14/19 025 Discontinued(Re order (will not trigger notification to Pharmacy)) cholecalciferol (Vitamin D3) 25 MCG (1000 UT) tabletIndication s:Low vitamin D level TAKE 1 TABLET BY MOUTH EVERY DAY 90 tablet 1 03/25/20 25 025 Discontinued(Re order (will not trigger notification to Pharmacy)) amLODIPine (Norvasc) 10 MG tabletIndication s:Essential hypertension TAKE 1 TABLET (10 MG) BY MOUTH ONCE PER DAY. 90 tablet 1 03/25/20 25 025 Discontinued(Re order (will not trigger notification to Pharmacy)) hydrOXYzine pamoate (Vistaril) 25 MG capsuleIndicatio ns:Generalized anxiety disorder TAKE 1 CAPSULE (25 MG) BY MOUTH EVERY 8 (EIGHT) HOURS IF NEEDED FOR ITCHING FOR UP TO 20 DAYS. 30 capsule 1 04/18/20 025 Discontinued(Re order (will not trigger notification to Pharmacy)) butalbital-aceta minophen-caffein e 50-325-40 MG tabletIndication s:Chronic migraine with aura without status migrainosus, not intractable TAKE 1 TO 2 TABLETS BY MOUTH EVERY 4 HOURS NEEDED NOT TO EXCEED 6 TABLETS PER 24 HOURS 15 tablet 4 04/25/20 025 Discontinued(Re order (will not trigger notification to Pharmacy)) ibuprofen 800 MG tabletIndication s:Pain TAKE 1 TABLET BY MOUTH THREE TIMES A DAY WITH FOOD 90 tablet 05/16/20 25 025 Discontinued(Re order (will not trigger notification to Pharmacy)) sertraline (Zoloft) 50 MG tabletIndication s:Generalized anxiety disorder TAKE 1 TABLET BY MOUTH EVERY DAY IN THE MORNING 30 tablet 2 05/16/20 025 Discontinued(Re order (will not trigger notification to Pharmacy)) omeprazole (PriLOSEC) [address] capsuleIndicatio ns:Gastroesophag eal reflux disease, unspecified whether esophagitis present TAKE 1 CAPSULE BY MOUTH EVERY DAY BEFORE A MEAL 90 capsule 1 05/30/20 25 025 Discontinued(Re order (will not trigger notification to Pharmacy)) Active Problems Problem Noted Date Diagnosed Date Diminished vision 07/09/2025 Primary osteoarthritis of left knee 07/09/2025 Assessment & Plan (07/09/2025 4:23 PM EDT): I will prescribe for patient a cane Continue to follow-up with specialist Carpal tunnel syndrome of left wrist 07/09/2025 Assessment & Plan (07/09/2025 4:23 PM EDT): I will prescribe for patient a wrist brace Mixed stress and urge urinary incontinence 07/09 Assessment & Plan (07/09/2025 4:22 PM EDT): I will refer patient to urology I will prescribe for patient pads Chronic midline low back pain without sciatica 0 07/09/2025 Assessment & Plan (07/09/2025 4:23 PM EDT): I will refer patient to physical therapy Encounter for preventive care 07/09/2025 Assessment & Plan (07/09/2025 4:23 PM EDT): See HPI Positive WIL (antinuclear antibody) 11/14/2024 Chronic pain of left knee 11/14/2024 Assessment & Plan (11/14/2024 12:30 PM EST): Prescription for cane will be generated Right arm pain 09/30/2024 Fibromyalgia 09/30/2024 Assessment & Plan (07/09/2025 4:23 PM EDT): Patient was educated about multidisciplinary approach for her condition, it was advise cardiovascular exercise, maintain hydration, treat anxiety/depression and take medications as directed Assessment & Plan (11/14/2024 12:30 PM EST): Patient was educated about multidisciplinary approach for her condition, it was advise cardiovascular exercise, maintain hydration, treat anxiety/depression and take medications as directed C/w gabapentin 100mg Q 8hrs Assessment & Plan (09/30/2024 4:29 PM EST): Patient's clinical picture with fibromyalgia Patient was educated about multidisciplinary approach for her condition, it was advise cardiovascular exercise, maintain hydration, treat anxiety/depression and take medications as directed I will start low dose gabapentin RTC 4 weeks Polyarthralgia 09/30/2024 Weight gain 07/01/2024 Bilateral carpal tunnel syndrome 07/01/2024 Vertigo 07/01/2024 Left foot pain 03/07/2024 Assessment & Plan (03/07/2024 1:44 PM EDT): Continue to follow with orthopedics Generalized anxiety disorder 01/04/2024 Assessment & Plan (07/09/2025 4:23 PM EDT): Stable continue with same interventions Assessment & Plan (09/30/2024 4:30 PM EST): Stable c/w same interventions Assessment & Plan (03/07/2024 1:45 PM EDT): C/wsertraline 50mg daily and f/u with therapist Assessment & Plan (01/04/2024 10:57 AM EST): Counseling pradip today I will start her on sertraline 50mg daily and hydroxyzine 25mg Q 8hrs PRN for anxiety and insomnia BHN referral, patient could not wait to be seen by clinician today RTC 2-3 weeks in person Chronic left shoulder pain 12/13/2023 Palpitations 11/21/2023 Assessment & Plan (11/21/2023 11:00 AM EST): Labs will be check Cardiology referral Acute pain of left knee 09/19/2023 Acute pain of right shoulder 09/19/2023 Diarrhea 08/29/2023 08/29/2023 Epigastric pain 08/29/2023 08/29/2023 Essential hypertension 08/29/2023 Assessment & Plan (07/09/2025 4:22 PM EDT): Advise: - Aerobic exercise to reduce BP. Initial goal of 30 min walk 3-5x/week. Increase as tolerated. - low-sodium diet (goal: <2g/day) and heart healthy diet such as DASH to reduce BP and prevent ASCVD. - Home BP monitoring 1-2 x day with goal of <140/90. - Seek immediate medical attention for chest pain, palpitations, SOB, syncope, or sudden changes in mental status. - Do not change or discontinue current prescriptions without first consulting health care provider Assessment & Plan (07/01/2024 5:00 PM EDT): Maintenance: BMP: ordered Lipid Panel: ordered ASCVD Risk: Calculate pending updated labs - Aerobic exercise to reduce BP. Initial goal of 30 min walk 3-5x/week. Increase as tolerated. - low-sodium diet (goal: <2g/day) and heart healthy diet such as DASH to reduce BP and prevent ASCVD. - Home BP monitoring 1-2 x day with goal of <140/90. - Seek immediate medical attention for chest pain, palpitations, SOB, syncope, or sudden changes in mental status. - Do not change or discontinue current prescriptions without first consulting health care provider Assessment & Plan (03/07/2024 1:43 PM EDT): Not control today, tells me she has better numbers at home, I advise low Na diet to take her meds every day, I prescribed BP cuff I advise to log her BP after medications and when she has headache episode and bring log back for nurse appointment if BP not at goal paln is to switch amlodipine to amlodipine/benzapril combo Assessment & Plan (01/04/2024 10:55 AM EST): Likely BP is high being triggered by extreme anxiety, I will start treatment today and ask to monitor BP at home, Ill see her again in 2 weeks - Aerobic exercise to reduce BP. Initial goal of 30 min walk 3-5x/week. Increase as tolerated. - low-sodium diet (goal: <2g/day) and heart healthy diet such as DASH to reduce BP and prevent ASCVD. - Home BP monitoring 1-2 x day with goal of <140/90. - Seek immediate medical attention for chest pain, palpitations, SOB, syncope, or sudden changes in mental status. - Do not change or discontinue current prescriptions without first consulting health care provider Assessment & Plan (12/13/2023 11:25 AM EST): - Aerobic exercise to reduce BP. Initial goal of 30 min walk 3-5x/week. Increase as tolerated. - low-sodium diet (goal: <2g/day) and heart healthy diet such as DASH to reduce BP and prevent ASCVD. - Home BP monitoring 1-2 x day with goal of <140/90. - Seek immediate medical attention for chest pain, palpitations, SOB, syncope, or sudden changes in mental status. - Do not change or discontinue current prescriptions without first consulting health care provider Assessment & Plan (11/21/2023 11:02 AM EST): I advise low Na diet and weight reduction C/w amlodipine 5mg in the morning I added today carvedilol 6.25mg BID Monitor BP at home goal is BP <140/90mmhg ED precautions reviewed with patient RTC 3 weeks Fatigue 08/29/2023 08/29/2023 Gastroesophageal reflux disease 08/29/2023 08/29/2023 Assessment & Plan (07/09/2025 4:22 PM EDT): I advise patient to avoid NSAIDs, spicy and acid food, I advise to eat at the same time every day, I advise to elevate the head of the bed and take medications as prescribe Assessment & Plan (09/30/2024 4:29 PM EST): Stable c/w same interventions Heartburn 08/29/2023 08/29/2023 Moderately severe depression 08/29/2023 Assessment & Plan (01/16/2024 12:40 PM EDT): PROGRESS NOTE: ID: Jing is a 43 y.o. straight-identified cis-female with previous documented hx of Anxiety. Hx of MH services including OP Psychotherapy; who presents for Anxiety and Depression. Jing lives with her partner and her 2 children. 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 Denies trauma, self harm, SI/HI and substance use. During IBH Consult Jing presenting with depressed mood, loss of interests/pleasure , changes in sleep difficulty falling asleep and difficulty staying asleep , change in appetite or weight reduce appetite, psychomotor agitation, trouble concentrating, fatigue/loss of energy, worthlessness and excessive worry/anxiety, difficulty controlling worry, restless/keyed up/On edge, easily fatigued, difficulty concentrating/Mind going blank , irritability, muscle tension, and sleep disturbance difficulty falling asleep and difficulty staying asleep ; for a period of 18+ mo, for all symptoms in the context of having two eptopic as a result she had to have her fallopian tubes removed, mother had three back to back strokes and concern about health. PLAN: New/Additional Services needed PCP management Off-site services for Behavioral Health Integration Plan External OP therapy referral Patient Self Plan Patient to utilize skills provided in intervention , Patient to reach out to [facility] team as needed, and Comply with medication prescribed by PCP zolof 50 mg and vistaril 25mg. Numbness and tingling sensation of skin 08/29/2008/29/2023 Pain in female pelvis 08/29/2023 08/29/2023 Chronic migraine with aura w ithout status migrainosus, not intractable 08/29/2023 Assessment & Plan (07/09/2025 4:24 PM EDT): I advise to avoid migraine triggers like red wine, chocolate, cheese, strong perfumes Assessment & Plan (09/30/2024 4:29 PM EST): Stable c/w same interventions Assessment & Plan (03/07/2024 1:45 PM EDT): I advise to avoid migraine triggers like red wine, chocolate, cheese, strong perfumes I put her back on amitryptilien 10mg daily C/w fioricept PRN Assessment & Plan (01/04/2024 10:56 AM EST): Patient has not being taking her amitriptyline, I advise her to take it at bed time Acetaminophen PRN for break through headaches Assessment & Plan (09/19/2023 12:01 PM EST): I advise to avoid migraine triggers like red wine, chocolate, cheese, strong perfumes C/w current treatment Assessment & Plan (08/29/2023 4:44 PM EDT): I advise to avoid migraine triggers like red wine, chocolate, cheese, strong perfumes Acute pain of left shoulder 08/29/2023 Assessment & Plan (09/19/2023 12:01 PM EST): Awaiting for PT c/w pain meds PRN Assessment & Plan (08/29/2023 4:44 PM EDT): alterant acetaminophen and ibuprofen Today I added muscle relaxer apply heat on affected area XRAY Nerve test Pain in both feet 08/29/2023 Resolved Problems Problem Noted Date Diagnosed Date Resolved Date Migraine without aura, not refractory 08/29/202308/29/2023 Encounters Date Type Department Care Team Description 07/10/[address] [phone] Latia Prieto MD DME cane, wrist brace, incontinent pads 07/10/[address] [address] Latia Prieto MD DME cane, pads, wrist brace 07/09/2025 10:45 AM EDT Office Visit [address] [address] Latia Prieto MD Essential hypertension (Primary Dx); Diminished vision; Generalized anxiety disorder; Fibromyalgia; Low vitamin D level; Chronic migraine with aura without status migrainosus, not intractable; Wheezing; Gastroesophageal reflux disease, unspecified whether esophagitis present; Pain; Primary osteoarthritis of left knee; Carpal tunnel syndrome of left wrist; Mixed stress and urge urinary incontinence; Chronic midline low back pain without sciatica; Encounter for preventive care 07/09/2025 Travel 07/02/2025 Patient Outreach [facility] [address] [place] [phone] Latia Prieto MD Pre-visit Planning (SDOH screening negative and tobacco screening negative) 05/30/2025 Refill [facility] [address] [place] [address] Latia Prieto MD Gastroesophageal reflux disease, unspecified whether esophagitis present 05/16/2025 Refill [facility] [address] [place] [address] Latia Prieto MD Pain; Generalized anxiety disorder 05/08/2025 1:00 PM EDT Immunization [facility] [address] [place] [phone] Encounter for immunization 05/08/2025 Travel 05/01/2025 Telephone [facility] [address] [place] [phone] Latia Prieto MD Appointment Change 04/24/2025 Refill [facility] [address] [place] [phone] Latia Prieto MD Chronic migraine with aura without status migrainosus, not intractable 04/17/2025 Refill [facility] [address] [place] [address] [phone] Latia Prieto MD Generalized anxiety disorder from Last 3 Months Immunizations Immunization Administration Dates Next Due Hep B, adult 05/08/2025,12/05/2024,11/07/2024 TD (adult), 2 Lf tetanus tox oid, preservative free, adsorbed 04/13/2011 Tdap 09/30/2024 Social History Tobacco Use Types Packs/Day Years Used Date Smoking Tobacco: Never Passive Smoke Exposure: Never Smokeless Tobacco: Never Alcohol Use Standard Drinks/Week Comments Never 0 (1 standard drink = 0.6 oz pur e alcohol) Depression Answer Date Recorded Patient Health Questionnaire-9 Score 9 07/09/2025 Patient Health Questionnaire-9 Score 9 07/09/2025 Last PHQ-9: Questionnaire Data Not on file 0 07/09/2025 Housing Stability Answer Date Recorded What is your housing situation today? I have maira alfonso 07/02/[address] you li ve. Do you have problems with any of the following? None of the above 07/02/2025 Food Insecurity Answer Date Recorded Within the past 12 months, y ou worried that your food would run out before you got money to buy more: Never True 07/02/2025 Within the past 12 months,th e food you bought just didn't last and you didn't have enough money to get more: Never True Transportation Answer Date Recorded In the past 12 months, has l ack of transportation kept you from medical appts, meetings, work or from getting things needed for daily living? No 07/02/2025 Utilities Answer Date Recorded In the past 12 months, has t he electric, gas, oil or water company threatened to shut off services in your home? Yes 07/02/2025 Depression Answer Date Recorded Patient Health Questionnaire-2 Score 2 07/09/2025 Internet Access Answer Date Recorded Internet Access Q1 Yes 07/02/2025 Internet Access Q2 Not on file 07/02/2025 Comments Unknown Sex and Gender Information Value Date Recorded Sex Assigned at Female 09/05/2022 10:27 AM EDT Legal Sex Female 10:27 AM EDT Gender Identity Female 09/05/2022 10:27 AM EDT Sexual Orientation Straight 09/05/2022 10 :27 AM EDT Last Filed Vital Signs Vital Sign Reading Time Taken Comments Blood Pressure 130/89 07/09/2025 11:09 AM EDT Pulse 72 07/09/2025 11:09 AM EDT Temperature 35.3 C (95.6 F) 07/09/2025 11:09 AM EDT Respiratory Rate 20 07/09/2025 11:09 AM EDT Oxygen Saturation 100% 09/30/2024 11:05 AM EST Inhaled Oxygen Concentration - - Weight 84.9 kg (187 lb 3.2 oz) 07/09/2025 11:09 AM EDT Height 152.4 cm (5') 07/09/2025 11:09 AM EDT Body Mass Index 36.56 07/09/2025 11:09 AM EDT Plan of Treatment Upcoming Encounters Date Type Department Care Team (Late st Contact Info) Description 11/04/2025 10:00 AM EST Office Visit [facility] [address] [place] [phone] Criselda Pappas [address] [place] [address] Health Maintenance Due Date Last Done Comments Disability Screening 1980 Family Planning (PISQ) 1995 HPV Vaccines (1 - 3-dose series) 1995 Dental X-Ray: Full Mouth 12/03/2022 12/02/2019 COVID-19 Vaccine ( season) 2025 Influenza Vaccine (#1) 2025 09/24/2014 Mammogram 08/05/2025 08/05/2024, 07/08, 06/09/2022 Dental Oral Exam 10/17/2025 04/16/2025, , 02/14/2024, Additional history exists Dental Prophylaxis 10/17/2025 04/16/2025, 1 , 02/14/2024 Depression Monitoring 01/06/2026 07/09/2025, 025 Dental X-Ray: Bitewings 04/17/2026 04/16/20, 02/14/2024, 12/02/2019 SDOH Screening 07/02/2026 07/02/2025 Alcohol/Substance Use Screening 07/09/2026 07/09/2025 Tobacco Screening 07/09/2026 07/09/2025 Cervical Cancer Screening 06/06/2027 HPV/Cotest 06/06/2027 06/06/2022, 06/06/2022 Pap Smear 06/06/2027 06/06/2022 Lipid Panel 07/04/2029 07/04/2024, 11/06, 08/09/2022, Additional history exists Zoster Vaccines (1 of 2) 2030 DTaP/Tdap/Td Vaccines (3 - Td or Tdap) 09/30/2034 09/30/2024, 11/03/2014, 04/13/2011 RSV Patients and Patients Aged 60 years or older (1 - 1-dose 75+ series) 2055 Hepatitis C Screening Completed 03/03/2021 HIV Screening Completed 08/09/2022, 03/03/2021 Hepatitis B Vaccines Completed 05/08/2025, 12/05/2024, 11/07/2024 [...] patient's age to complete this topic Meningococcal Vaccine Aged Out No teo boo eligible based on patient's age to complete this topic Pneumococcal Vaccine: Pediatrics (0 to 5 Years) and At-Risk Patients (6 to 49) Years Aged Out No longer eligible based on patient's age to complete this topic RSV under 20 months Aged Out No longe r eligible based on patient's age to complete this topic Rotavirus Vaccines Aged Out No longer eligible based on patient's age to complete this topic Procedures Procedure Name Priority Date/Time Associated Diagnosis Comments PROPHYLAXIS - ADULT Routine 04/16/2025 3 :00 PM EDT BITEWINGS - 4 RADIOGRAPHIC IMAGES Routine 04/16/2025 3:00 PM EDT PERIODIC ORAL EVALUATION - ESTABLISHED PATIENT Routine 04/16/2025 3:00 PM EDT BI MAMMOGRAM SCREENING TOMOSYNTHESIS BILATERAL Routine 08/05/2024 3:42 PM EDT LIPID PANEL, STANDARD Routine 07/04/2024 10:00 AM EDT Essential hypertension Palpitations HIV 1/2 ANTIGEN/ANTIBODY, FOURTH GENERATION W/RFL Routine 08/09/2022 8:39 AM EDT ZZZ HISTORICAL HPV E6/E7 RFLX CARLOS 16 18/45 Routine 06/06/2022 10:41 AM EDT HM PAP/HPV Routine 06/06/2022 ZZZ HISTORICAL HEPATITIS C AB W/REFL TO HCV RNA, QN, PCR Routine 03/03/2021 10:54 AM EDT INTRAORAL - COMPLETE SERIES OF RADIOGRAPHIC IMAGES Routine 12/02/2019 12:00 AM EST from Last 3 Months or Most Recently Relevant to Health Maintenance Results * BI Mammogram Screening Tomosynthesis Bilateral (08/05/2024 3:42 PM EDT) Anatomical Region Laterality Modality Breast Bilateral Mammography 08/05/2024 3:42 PM EDT Narrative 08/15/2024 6:40 PM EDT [facility] [address] [place] [address] Mammography Report Signed Patient: Jing Ryan MR#: [id number] 54 : 1980 Acct:[id number] Age/Sex: 43 / F ADM Date: 08/05/24 Loc: HO.MAMMO Attending Dr: Latia Barrios MD Ordering Physician: Latia Prieto MD Results: 1Negative Date of Service: 08/05/24 Follow Up: 1 Year From Orig inal Mammogram Procedure(s): MM tomosynthesis screening BI Accession Number(s): [id number] cc: Latia Prieto MD EXAMINATION: MM SCREENING DIGITAL BREAST TOMOSYNTHESIS, BILATERAL CLINICAL INFORMATION: Screening. Asymptomatic. COMPARISON: Mammography: Comparison is made with available priors TECHNIQUE: Digital breast mammography with tomosynthesis is performed in both the craniocaudal and mediolateral oblique views along with computer-aided detection (CAD). FINDINGS: There are scattered areas of fibroglandular density (ACR BI-RADS breast composition Category b). There are no significant masses, abnormal calcifications, or other abnormalities. MM/MM tomosynthesis screening BI IMPRESSION: No mammographic evidence of malignancy. ASSESSMENT: BI-RADS BI-RADS 1 - Negative RECOMMENDATION: Routine annual mammography screening. 1 year F/U This examination should not preclude the clinical evaluation of a suspicious palpable abnormality. This patient's information was entered into a reminder system with a target due date for their next mammogram. Electronically signed by: Tanya Carey DO 08/15/2024 06:36 PM EDT Dictated By: Tanya Carey DO Signed By: <Electronically signed by Tanya Carey DO in OV> 08/15/24 1836 DD/ 1542 TD/TT: 08/05/24 1556 [employer]: Procedure Note Donotuseinterpreter, Image - [facility] [address] [place] [address] Mammography Report Signed Patient: Jing RyanMR#: [id number] 54 : 1980Acct:[id number] Age/Sex: 43 / FADM Date: 08/05/24 Loc: HO.MAMMO Attending Dr: Latia Barrios MD Ordering Physician: Latia Prieto MDResults: 1Negative Date of Service: 08/05/24Follow Up: 1 Year From Orig inal Mammogram Procedure(s): MM tomosynthesis screening BI Accession Number(s): [id number] cc: Latia Prieto MD EXAMINATION: MM SCREENING DIGITAL BREAST TOMOSYNTHESIS, BILATERAL CLINICAL INFORMATION: Screening. Asymptomatic. COMPARISON: Mammography: Comparison is made with available priors TECHNIQUE: Digital breast mammography with tomosynthesis is performed in both the craniocaudal and mediolateral oblique views along with computer-aided detection (CAD). FINDINGS: There are scattered areas of fibroglandular density (ACR BI-RADS breast composition Category b). There are no significant masses, abnormal calcifications, or other abnormalities. MM/MM tomosynthesis screening BI IMPRESSION: No mammographic evidence of malignancy. ASSESSMENT: BI-RADS BI-RADS 1 - Negative RECOMMENDATION: Routine annual mammography screening. 1 year F/U This examination should not preclude the clinical evaluation of a suspicious palpable abnormality. This patient's information was entered into a reminder system with a target due date for their next mammogram. Electronically signed by: Tanya Carey DO 08/15/2024 06:36 PM EDT Dictated By: Tanya Carey DO Signed By: <Electronically signed by Tanya Carey DO in OV> 08/15/24 1836 DD/ 1542 TD/TT: 08/05/24 1556 [employer]: us Latia Barrios MD IMG BI PROCEDURES Jonathon melisa Result - Final * (ABNORMAL) Lipid Panel, Standard (07/04/2024 10:00 AM EDT) Triglycerides 92 <150 mg/dL [facility] Comment:Desirable Triglyceri de: less than 150 mg/dLBorderline High Triglyceride 150-199 mg/dLHigh Triglyceride: 200-499 mg/dLVery High Triglyceride: greater than or equal to 5OO mg/dL Cholesterol 203(H) <200 mg/dL [facility] Comment:Desirable Cholestero l: less than 200 mg/dLBorderline High Cholesterol: 200-239 mg/dLHigh Cholesterol: greater than 239 mg/dL LDL Cholesterol Calculated 129(H) <100 mg/dL [facility] Comment:Desirable LDL: less than 100 mg/dLNear Optimal/Above Optimal LDL: 110- 129 mg/dLBorderline High LDL: 130-159 mg/dLHigh LDL: 160-189 mg/dLVery High LDL: greater than or equal to 190 mg/dL HDL Cholesterol 56 >40 mg/dL [facility] Comment:Desirable HDL: great er than 40 mg/dL Note: This HDL assay may give artificially low results in patients with liver disease. Blood Venous blood specimen / Unknown 07/04/2024 10:00 AM EDT 07/04/2024 11:11 AM EDT Latia Barrios MD LAB BLOOD ORDERABLES Final Result [facility] [address] [place] [address] [phone] * HIV 1/2 ANTIGEN/ANTIBODY,FOURTH GENERATION W/RFL (08/09/2022 8:39 AM EDT) HIV-1/2 ANTIGEN AND ANTIBODIES, 4TH GENERATION W/ REFLEX NON-REACT WILMA NON-REACT WILMA [facility] Comment: HIV-1 antigen and HIV-1/HIV-2 antibodies were not detected. There is no laboratory evidence of HIV infection. PLEASE NOTE: This information has been disclosed to you from records whose confidentiality may be protected by state law. If your state requires such protection, then the state law prohibits you from making any further disclosure of the information without the specific written consent of the person to whom it pertains, or as otherwise permitted by law. A general authorization for the release of medical or other information is NOT sufficient for this purpose. For additional information please refer to http://[employer]/faq/YRD343 (This link is being provided for informational/ educational purposes only.) The performance of this assay has not been clinically validated in patients less than 2 years old. 08/09/2022 8:39 AM EDT us Latia Barrios MD LAB BLOOD ORDERABLES Final Result Performing Organization Address City/[facility]/ZIP Co de Phone Number [facility] * HPV E6/E7 RFLX CARLOS 16 18/45 (06/06/2022 10:41 AM EDT) HPV 16 RNA [facility] HPV 18/45 RNA [facility] HPV E6 E7 ADD [facility] HPV mRNA E6/E7 rflx Not Detected Not Detected [facility] Comment: Methodology: Dedicated Truck Driver-Mediated Amplification This assay detects E6/E7 viral messenger RNA (mRNA) from 14 high-risk HPV types (16,18,31,33,35,39,45,51,52,56,58,59,66,68). Cervical sources are required for HPV testing. If a vaginal source from a patient who has had a total hysterectomy with removal of cervix was submitted, please contact the testing laboratory for alternative testing options. For additional information, please refer to http://education.[employer]/faq/ZFY876p7 (This link if provided for information/ educational purposes only.) THIS TEST WAS PERFORMED AT: [facility] [address] [place] [address] [address] [address] CHANO MOHR MD 06/06/2022 10:4 1 AM EDT Sergio Mas MD HISTORICAL/NON ORDERABLE LABS Fi nal Result Performing Organization Address City/[facility]/ZIP Co de Phone Number [facility] [address] * Hm Pap Smear (06/06/2022) Historical Provider HEALTH MAINTENANCE Final Result * HEPATITIS C AB W/REFL TO HCV RNA, QN, PCR (03/03/2021 10:54 AM EDT) HEPATITIS C ANTIBODY NON-REACT WILMA NON-REACT WILMA [facility] INDEX 0.09 <1.00 [facility] Comment: HCV antibody was non-reactive. There is no laboratory evidence of HCV infection. In most cases, no further action is required. However, if recent HCV exposure is suspected, a test for HCV RNA (test code 42298) is suggested. For additional information please refer to http://[employer]/faq/SYD17q6 (This link is being provided for informational/ educational purposes only.) 03/03/2021 10:5 4 AM EDT Latia Barrios MD HISTORICAL/NON ORDERA BLE LABS Final Result [facility] [address] from Last 3 Months or Most Recently Relevant to Health Maintenance Insurance [facility] C[facility] [employer] [address] [address] [place] AD[place] Care Teams Nuclear Medicine Specialist Relationship Specialty Start Date End Date Latia Prieto MD [address] [place] [phone] PCP - General Family Medicine 05/13/19
--- OUTSIDE RECORDS SUMMARY | 2025-07-18 10:51 | XMS_ITS | Encounter Summary ---
Author Organization [employer] Address [address] [facility] [address] [place] [address] Care Team Providers Care Watch Train Assembler Name Role Phone Latia Prieto MD Primary Care Provide r Reason for Visit * Reason Onset Date Comments Med Refill 11/04/2024 Encounter Details Date Type Department Care Team ([facility] Contact Info) Description 11/04/2024 Telephone [facility] [address] [place], [place] [phone] Latia Prieto MD [address] [place], [place] [phone] Med Refill Social History Tobacco Use Types [...] Encounter - Tamara Medrano LPN - 11/04/2024 8:15 AM EST Medication pended to PCP. * Telephone Encounter - Amy Talbert - 11/04/2024 8:07 AM EST TC from pt requesting medication refill. Medications needing refill : amLODIPine (Norvasc) 10 MG tablet To be sent to: [facility]/pharmacy #[id number] documented in this encounter Plan of Treatment Upcoming Encounters Date Type Department Care Team (Late st Contact Info) Description 11/04/2025 10:00 AM EST Office Visit [facility] [address] [place] [address] [phone] Criselda Pappas [address] [place], [place] [phone] documented as of this encounter Visit Diagnoses Not on filedocumented in this encounter Additional Health Concerns Assessment Noted Time PHQ-9 Depression Total Score: 17 024 11:42 AM EST documented as of this encounter Care Teams Watch Train Assembler Relationship Specialty Start Date End Date Latia Prieto MD [address] [place] [address] [phone] PCP - General Family Medicine 05/13/19 documented as of this encounter
[2025-07-18 11:17] LABS: MANUAL DIFF FLAG NO
[2025-07-18 11:21] LABS: Hematocrit 36.5 % (37.0-47.0); Hemoglobin 12.3 g/dl (12.0-16.0); Imm Gran Abs Auto 0.02 X10*3/uL (0.00-0.03); Imm Gran Pct Auto 0.3 % (0.0-0.4); Lymphocytes Absolute Auto 2.0 X10*3/uL (1.2-4.9); Mean Corpuscular HGB Conc 33.7 g/dl (31.0-35.0); Mean Corpuscular Hemoglobin 29.4 pg (27.0-33.0); Mean Corpuscular Volume 87.3 fL (80.0-98.0); NRBC Abs Auto 0.000 X10*3/uL (0.0-0.012); NRBC Pct Auto 0.0 /100WBC (0.0-0.2); Platelet Count 396 X10*3/uL (160-400); Red Blood Count 4.18 X10*6/uL (4.20-5.50); White Blood Count 6.1 X10*3/uL (4.8-10.8)
[2025-07-18 11:47] LABS: Hemoglobin A1C 114.3214 umol/L; Total Hemoglobin (HGBA1C) 3189.6687 umol/L
[2025-07-18 12:33] LABS: Alanine Aminotransferase 23 U/L (0-31); Albumin Level 4.2 g/dL (3.5-5.0); Alkaline Phosphatase 81 U/L (39-117); Anion Gap 11 (12-20); Aspartate Amino Transferase 27 U/L (5-31); Blood Urea Nitrogen 10 mg/dL (9-16); Calcium 8.7 mg/dL (8.4-10.2); Carbon Dioxide 27 mmol/L (22-29); Chloride 105 mmol/L (96-108); Cholesterol 162 mg/dL (<200); Estimated Glomerular Filt Rate > 60; HDL Cholesterol 49 mg/dL (>40); Potassium 3.5 mmol/L (3.3-5.1); Sodium 139 mmol/L (135-145); Total Protein 8.0 g/dL (6.5-8.0); Triglycerides 66 mg/dL (<150)
[2025-07-19 08:55] LABS: HIV Num 1 0.06 S/CO (0.00-0.99); ~HepC Num1 0.19 S/CO (0.00-0.79); ~Hepatitis C Antibody Nonreactive (Nonreactive)
== END 2025-07-18 09:43 | disposition home or self-care (01) ==
LOC: HO.HHCL 09:42
PROVIDERS: PCP Internal Medicine; Visit Provider Internal Medicine
DX: Z00.00 Encounter for general adult medical examination without abnormal findings (principal); Z11.59 Encounter for screening for other viral diseases; Z11.4 Encounter for screening for human immunodeficiency virus [HIV]
CPT/HCPCS: 36415; 80053; 80061; 82306; 83036; 84443; 85025; 86803; 87389